=== PATIENT | female | born 1960 | race Hispanic/Latino ===

== ENCOUNTER 2017-04-24 09:58 | Inpatient (IN) | payer OTHER ==
[2017-04-24] MEDS ORDERED: Sodium Chloride 0.9% 1,000 ML IV ONE (10:27)
[2017-04-24] MEDS ORDERED: Insulin Regular 1 UNITS/0.01 ML ML IVP STA (10:45)
[2017-04-24] MEDS ORDERED: Sodium Chloride 0.9% 1,000 ML IV STA ×5 (10:45→20:09)
--- NOTE | 2017-04-24 10:48 | ED PDOC ---
Arrival/HPI - General Chief Complaint: Flu-like Symptoms Time Seen by Provider: 04/24/17 10:07 - History of Present Illness Narrative History of Present Illness (Text): 04/24/17 10:27 Kodi Villavicencio is a 56 year old female who presents to the emergency department complaining of fever and diffuse abdominal pain for 4-5 days. Patient states that she experiences associated chills, vomiting bile daily, intolerance of food and liquids, and headaches. Mild cough. Patient went to her PMD, Dr. Marin , and found she had 104.5 degree fever, sending her to the emergency department. Patient denies any other complaint at this time. PMD: Dr. aMrin Time/Duration: < week Symptom Onset: Gradual Symptom Course: Unchanged Severity Level: Mild Activities at Onset: Rest Context: Home Past Medical History - Provider Review Nursing Documentation Reviewed: Yes - Infectious Disease Hx of Infectious Diseases: None - Reproductive Menopause: Yes - Cardiac Hx Cardiac Disorders: Yes - Pulmonary Hx Respiratory Disorders: No - Neurological Hx Neurological Disorder: No - HEENT Hx HEENT Disorder: No - Renal Hx Renal Disorder: No - Endocrine/Metabolic Hx Endocrine Disorders: Yes Hx Diabetes Mellitus Type 2: Yes - Hematological/Oncological Hx Blood Disorders: No - Integumentary Hx Dermatological Disorder: No - Musculoskeletal/Rheumatological Hx Musculoskeletal Disorders: No - Gastrointestinal Hx Gastrointestinal Disorders: No - Genitourinary/Gynecological Hx Genitourinary Disorders: No - Psychiatric Hx Psychophysiologic Disorder: Yes Hx Anxiety: Yes Hx Depression: Yes Hx Substance Use: No - Surgical History Hx Section: Yes - Anesthesia Hx Anesthesia: Yes Hx Anesthesia Reactions: No Hx Malignant Hyperthermia: No - Suicidal Assessment Feels Threatened In Home Enviroment: No Family/Social History - Physician Review Nursing Documentation Reviewed: Yes Family/Social History: No Known Family HX Smoking Status: Former Smoker Hx Alcohol Use: Yes Frequency of alcohol use: Socially Hx Substance Use: No Hx Substance Use Treatment: No Allergies/Home Meds Allergies/Adverse Reactions: Allergies No Known Allergies Allergy (Verified 06/06/16 18:10) Home Medications: Home Meds Medication Instructions Recorded Confirmed PARoxetine [Paxil] 10 mg PO DAILY 06/22/15 04/24/17 Zolpidem Tartrate [Ambien] 10 mg PO HS 06/22/15 04/24/17 Alprazolam [Xanax] 0.5 mg PO PRN PRN 06/06/16 04/24/17 Review of Systems - Physician Review All systems were reviewed & negative as marked: Yes - Review of Systems Constitutional: Fevers, Night Sweats Eyes: absent: Vision Changes ENT: absent: Hearing Changes Respiratory: absent: SOB Cardiovascular: absent: Chest Pain Gastrointestinal: Abdominal Pain, Vomiting, Food Intolerance Genitourinary Female: absent: Urine Output Changes Musculoskeletal: absent: Arthralgias Skin: absent: Rash Neurological: Headache Endocrine: absent: Diaphoresis Hemo/Lymphatic: absent: Adenopathy Psychiatric: absent: Depression Physical Exam Vital Signs Reviewed: Yes Vital Signs Temp Pulse Pulse Resp BP Pulse Ox 04/24/17 18:05 113/69 04/24/17 17:58 101 H 110/60 04/24/17 17:55 110 H 116/69 04/24/17 17:51 102 F H 04/24/17 17:47 70/40 L 04/24/17 16:00 98.7 F 77 20 88/52 L 95 04/24/17 15:56 102.9 F H 125 H 125 H 20 120/83 04/24/17 10:02 102.9 F H 125 H 20 120/83 94 L Temperature: Febrile Blood Pressure: Normal Pulse: Tachycardic Respiratory Rate: Normal Appearance: Positive for: Well-Appearing, Non-Toxic, Comfortable Pain Distress: Mild Mental Status: Positive for: Alert and Oriented X 3 - Systems Exam Head: Present: Atraumatic, Normocephalic Pupils: Present: PERRL Extroacular Muscles: Present: EOMI Conjunctiva: Present: Normal Mouth: Present: Moist Mucous Membranes Neck: Present: Normal Range of Motion Respiratory/Chest: Present: Clear to Auscultation, Good Air Exchange. No: Respiratory Distress, Accessory Muscle Use Cardiovascular: Present: Regular Rate and Rhythm, Normal S1, S2. No: Murmurs Abdomen: Present: Tenderness (to leftside of abdomen). No: Guarding Back: Present: Normal Inspection Upper Extremity: Present: Normal Inspection. No: Cyanosis, Edema Lower Extremity: Present: Normal Inspection. No: Edema Neurological: Present: GCS=15, CN II-XII Intact, Speech Normal Skin: Present: Warm, Dry, Normal Color. No: Rashes Psychiatric: Present: Alert, Oriented x 3, Normal Insight, Normal Concentration Medical Decision Making ED Course and Treatment: 04/24/17 10:27 Impression: 56 year old female complaining of fever and abdominal pain for 4-5 days. Slight cough. Differential Diagnosis included but are not limited to: Fever r/o Pancreatitis , Diverticulitis vs PNA Plan: -- EKG -- Chest X-ray -- Abdominal and Pelvis CT with contrast -- VBG and blood culture -- Urinalysis and urine culture -- Tylenol and IV fluids -- Reassess and disposition Prior Visits: Notes and results from previous visits were reviewed. Patient last seen in the ED on 06/06/16 for anterior aspect of the lower leg for one week. Patient was discharged home. Progress Notes: EKG: Ordered, reviewed, and independently interpreted the EKG. Rate : 114 BPM Rhythm : Sinus Tachycardia Interpretation : Inferior lateral T-wave inversions 04/24/17 13:41. CT reviewed and noted to have infiltrate. Will treat with antibiotics. Patient was hypotensive in ED and improved with IVF. Discussed case with Dr. Zeng and will admit patient for Pneumonia to Medicine. - Lab Interpretations Lab Results: 04/24/17 11:00 04/24/17 11:00 Lab Results 04/24/17 13:00: Urine Color Yellow, Urine Appearance Clear, Urine pH 6.5, Ur Specific [place] <= 1.005, Urine Protein Trace H, Urine Glucose (UA) Negative, Urine Ketones 40 H, Urine Blood Negative, Urine Nitrate Negative, Urine Bilirubin Negative, Urine Urobilinogen 0.2, Ur Leukocyte Esterase Trace H, Urine RBC 0 - 2, Urine WBC 2 - 5, Ur Epithelial Cells 4 - 5, Urine Bacteria Trace 04/24/17 11:00: Sodium 131 L, Chloride 93 L, Potassium 3.8, Carbon Dioxide 24, Anion Gap 18, BUN 12, Creatinine 0.7, Est GFR ( Amer) > 60, Est GFR (Non- Af Amer) > 60, Random Glucose 191 H, Calcium 8.8, Phosphorus 2.8, Magnesium 1.9 , Total Bilirubin 0.9, AST 41 H, ALT 37, Alkaline Phosphatase 86, Lactate Dehydrogenase 515, Total Creatine Kinase 98, Troponin I < 0.01, Total Protein 7.5, Albumin 4.1, Globulin 3.4, Albumin/Globulin Ratio 1.2 04/24/17 11:00: pO2 42, VBG pH 7.37, VBG pCO2 39.0 L, VBG HCO3 22.5, VBG Total CO2 23.7, VBG O2 Sat (Calc) 83.1 H, VBG Base Excess -2.5 L, VBG Potassium 4.2, Sodium 142.0, Chloride 87.0 L, Glucose 201 H, Lactate 1.4, FiO2 21.0, Venous Blood Potassium 4.2 04/24/17 11:00: PT 11.6, INR 1.07, APTT 29.2 04/24/17 11:00: WBC 14.8 H D, RBC 3.56, Hgb 11.1 L, Hct 31.9 L, MCV 89.6, MCH 31.2, MCHC 34.8, RDW 13.1, Plt Count 275, MPV 9.9, Gran % 84.0 H, Lymph % (Auto ) 6.7 L, [place] % (Auto) 9.2 H, Eos % (Auto) 0.0 L, Baso % (Auto) 0.1, Gran # 12.40 H, Lymph # 1.0 L, [place] # 1.4 H, Eos # 0.0, Baso # 0.02 - RAD Interpretation Radiology Orders: 04/24/17 10:30 CHEST PORTABLE [RAD] Stat 04/24/17 10:31 ABD & PELVIS IV CONTRAST ONLY [CT] Stat - Medication Orders Current Medication Orders: Acetaminophen (Tylenol 325mg Tab) 650 mg PO Q6H PRN PRN Reason: Fever >100.5 F Last Admin: 04/24/17 17:51 Dose: 650 mg Azithromycin (Zithromax 500mg In Ns) 500 mg in 250 mls @ 167 mls/hr IVPB DAILY LUÍS PRN Reason: Protocol Sodium Chloride (Sodium Chloride 0.9%) 1,000 mls @ 999 mls/hr IV .Q1H1M STA Stop: 04/24/17 19:02 Sodium Chloride (Sodium Chloride 0.9%) 1,000 mls @ 100 mls/hr IV .Q10H LUÍS Stop: 04/25/17 14:14 Piperacillin Sod/Tazobactam Sod (Zosyn 3.375 In Ns 100ml) 100 mls @ 200 mls/hr IVPB Q6 LUÍS PRN Reason: Protocol Stop: 05/02/17 18:46 Sodium Chloride (Sodium Chloride 0.9%) 1,000 mls @ 999 mls/hr IV .Q1H1M STA Stop: 04/24/17 19:46 Ondansetron HCl (Zofran Inj) 4 mg IVP Q4H PRN PRN Reason: Nausea/Vomiting Last Admin: 04/24/17 18:36 Dose: 4 mg Paroxetine HCl (Paxil) 10 mg PO DAILY LUÍS Zolpidem Tartrate (Ambien) 5 mg PO HS LUÍS PRN Reason: Protocol Discontinued Medications Acetaminophen (Tylenol 325mg Tab) 975 mg PO ONCE PRN PRN Reason: Fever >100.4 F Last Admin: 04/24/17 10:57 Dose: 975 mg Re-Assess: MAR Pain/Vitals Edit Result 04/24/17 11:57 ME (Rec: 04/24/17 15:23 [id number] Pain Reassessment Is This A Pain ReAssessment? Yes Sleep Is patient sleeping during reassessment? No Presence of Pain Presence of Pain No Location Pain Location Body Site Abdomen Sodium Chloride (Sodium Chloride 0.9%) 1,000 mls @ 999 mls/hr IV .Q1H1M STA Stop: 04/24/17 11:45 Last Admin: 04/24/17 10:58 Dose: 999 mls/hr Sodium Chloride (Sodium Chloride 0.9%) 1,000 mls @ 999 mls/hr IV .Q1H1M STA Stop: 04/24/17 13:32 Last Admin: 04/24/17 12:41 Dose: 999 mls/hr Ceftriaxone Sodium (Rocephin 1 Gram Ivpb) 1 gm in 100 mls @ 200 mls/hr IVPB STAT STA PRN Reason: Protocol Stop: 04/24/17 18:31 Iohexol (Omnipaque 350 100 Ml) Confirm Administered Dose 350 mg .ROUTE .STK-MED ONE Stop: 04/24/17 11:17 Ketorolac Tromethamine (Toradol) 30 mg IVP STAT STA Stop: 04/24/17 13:06 Last Admin: 04/24/17 13:23 Dose: 30 mg Pneumococcal Polyvalent Vaccine (Pneumovax 23 Vaccine) 0.5 ml IM .ONCE ONE Stop: 04/24/17 16:08 - Scribe Statement The provider has reviewed the documentation as recorded by the Scribe Divina Axel Provider Scribe Attestation: All medical record entries made by the Marlin were at my direction and personally dictated by me. I have reviewed the chart and agree that the record accurately reflects my personal performance of the history, physical exam, medical decision making, and the department course for this patient. I have also personally directed, reviewed, and agree with the discharge instructions and disposition. Disposition/Present on Arrival - Present on Arrival Any Indicators Present on Arrival: No History of DVT/PE: No History of Uncontrolled Diabetes: No Urinary Catheter: No History of Decub. Ulcer: No History Surgical Site Infection Following: None - Disposition Have Diagnosis and Disposition been Completed?: Yes Diagnosis: Pneumonia Disposition Time: 13:41 Patient Plan: Admission Patient Problems: Current Active Problems Problem Status Onset Pneumonia Acute Condition: FAIR
--- NOTE | 2017-04-24 10:57 | RAD ---
HISTORY: Sepsis Patient COMPARISON: No prior. FINDINGS: LUNGS: Ill-defined opacity at medial right lung base, possibly lower lobe infiltrate. This silhouettes the right hemidiaphragm. Followup advised. No other abnormal opacity seen elsewhere. PLEURA: No significant pleural effusion identified, no pneumothorax apparent. CARDIOVASCULAR: Normal. OSSEOUS STRUCTURES: No significant abnormalities. VISUALIZED UPPER ABDOMEN: Normal. OTHER FINDINGS: None. IMPRESSION: Medial right basilar opacity, possible pneumonia.
[2017-04-24] MEDS ORDERED: Iohexol 350 MG/100 ML VIAL ONE ×2 (11:16→22:28)
[2017-04-24 11:21] LABS: BASO # 0.02 K/mm3 (0.0-2.0); BASO % 0.1 % (0.0-3.0); HEMOGLOBIN 11.1 gm/dL (12.0-16.0); LYMPH % 6.7 % (22.0-35.0); MEAN CELL VOLUME 89.6 fL (80.0-105.0); MEAN CORPUSCULAR HEMOGLOBIN 31.2 pg (25.0-35.0); MEAN CORPUSCULAR HGB CONC 34.8 g/dl (31.0-37.0); MEAN PLATELET VOLUME 9.9 fl (7.0-11.0); MONO # 1.4 (0.1-0.6); MONO % 9.2 % (1.0-6.0); PLATELET COUNT 275 10^3/uL (120.0-450.0); RBC 3.56 10^6/uL (3.5-6.1); RED CELL DISTRIBUTION WIDTH 13.1 % (11.5-14.5); WHITE BLOOD COUNT 14.8 10^3/ul (4.5-11.0)
[2017-04-24 11:24] LABS: VENOUS BLOOD GAS BASE EXCESS -2.5 mmol/L (0.0-2.0); VENOUS BLOOD GAS PO2 42 mm/Hg (30-55); VENOUS BLOOD PH 7.37 (7.32-7.43)
[2017-04-24 11:29] LABS: ALB/GLOB RATIO 1.2 (1.1-1.8); ALBUMIN 4.1 g/dL (3.0-4.8); ALT/SGPT 37 U/L (7-56); AST/SGOT 41 U/L (15-39); BLOOD UREA NITROGEN 12 mg/dL (7-21); CALCIUM 8.8 mg/dL (8.4-10.5); GFR AFRICAN-AMERICAN > 60; GFR NON-AFRICAN AMERICAN > 60; INR 1.07 (0.93-1.08); MAGNESIUM 1.9 mg/dL (1.7-2.2); PARTIAL THROMBOPLASTIN TIME 29.2 Seconds (23.7-30.8); PROTHROMBIN TIME 11.6 Seconds (9.9-11.8)
[2017-04-24 11:42] LABS: TROPONIN I < 0.01 ng/mL
--- NOTE | 2017-04-24 13:03 | CT ---
PROCEDURE: CT Abdomen and Pelvis with contrast HISTORY: abd pain r/o diverticulitis r/o colitis COMPARISON: None. TECHNIQUE: Contrast dose: 100 mL Omnipaque 350 Radiation dose: Total exam DLP = 915.59 mGy-cm. This CT exam was performed using one or more of the following dose reduction techniques: Automated exposure control, adjustment of the mA and/or kV according to patient size, and/or use of iterative reconstruction technique. FINDINGS: LOWER THORAX: Right lower lobe infiltrate with areas of mei consolidation. LIVER: Unremarkable. No gross lesion or ductal dilatation. GALLBLADDER AND BILE DUCTS: Unremarkable. PANCREAS: No mass. Fatty atrophy of the pancreatic head. No ductal dilatation. No peripancreatic fluid. SPLEEN: Unremarkable. ADRENALS: Unremarkable. No mass. KIDNEYS AND URETERS: Unremarkable. No hydronephrosis. No solid mass. VASCULATURE: Unremarkable. No aortic aneurysm. BOWEL: Sigmoid diverticulosis. Mural thickening of the sigmoid colon likely secondary to chronic muscular hypertrophy. No evidence diverticulitis. APPENDIX: Normal appendix. PERITONEUM: Unremarkable. No free fluid. No free air. LYMPH NODES: Unremarkable. No enlarged lymph nodes. BLADDER: Unremarkable. REPRODUCTIVE: Normal uterus BONES: No acute fracture. OTHER FINDINGS: None. IMPRESSION: Right lower lobe infiltrate, possibly pneumonia. No evidence of diverticulitis. Sigmoid diverticulosis with probable chronic muscular hypertrophy. Otherwise unremarkable examination. No
[2017-04-24 13:19] LABS: PH,URINE 6.5 (4.7-8.0); URINE BILIRUBIN NEGATIVE (NEGATIVE); URINE BLOOD NEGATIVE (NEGATIVE); URINE GLUCOSE (UA) NEGATIVE (NEGATIVE); URINE LEUKOCYTE ESTERASE TRACE Leu/uL (NEGATIVE); URINE NITRATE NEGATIVE (NEGATIVE); URINE PROTEIN TRACE mg/dL (<30 mg/dL); URINE UROBILINOGEN 0.2 E.U./dL (<1 E.U./dL)
[2017-04-24 13:20] LABS: URINE APPEARANCE CLEAR (CLEAR); URINE COLOR YELLOW (YELLOW)
[2017-04-24 13:29] LABS: URINE RBC 0 - 2 /hpf (0-2)
[2017-04-24 13:30] LABS: URINE BACTERIA TRACE (NEG)
[2017-04-24 16:07] VITALS: BMI 35.5
[2017-04-24] MEDS ORDERED: Pneumococcal 23-Valent Vaccine IM ONE (16:07)
[2017-04-24] MEDS ORDERED: cefTRIAXone 1 gm 1 GM/100 ML BAG IVPB STA (18:02)
--- NOTE | 2017-04-24 18:05 | CP.PCM.PN ---
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 nurses report patient was hypotensive at 70/40. Patient felt chills, denies chest pain, SOB, abdominal pain, N/V. Patient was immediately placed in trendelenberg new blood pressure 116/69. Vitals: 110/76 HR 101 T 102F PE: General: AAOx3, chills, diaphoretic, anxious Eyes: EOMI, no scleral icterus Throat: trachea midline Heart: Tachycardia, regular rhythm, S1 and S2 auscultated Lungs: Consolidation in Right lower lobe, no cyanosis, respiratory distress, hyperventilation. Abdomen: round, soft, nontender Extremities: no pitting edema, full ROM, muscle strength +5/[address] Abdomen: poss. Right lower lobe pneumonia IVF NS 1L bolus Started Zithro 500mg, rocephin 1 gm IVPB Recheck vitals in one hour Tylenol 650mg STAT Case discussed with Dr. Evans Objective - Vital Signs/Intake and Output Vital Signs (last 24 hours): Temp Pulse Resp BP Pulse Ox 98.7 F 101 H 20 110/60 95 04/24/17 16:00 04/24/17 17:58 04/24/17 16:00 04/24/17 17:58 04/24/17 16:00 - Medications Medications: Current Medications Acetaminophen (Tylenol 325mg Tab) 650 mg PO Q6H PRN PRN Reason: Fever >100.5 F Azithromycin (Zithromax 500mg In Ns) 500 mg in 250 mls @ 167 mls/hr IVPB DAILY LUÍS PRN Reason: Protocol Ceftriaxone Sodium (Rocephin 1 Gram Ivpb) 1 gm in 100 mls @ 200 mls/hr IVPB STAT STA PRN Reason: Protocol Stop: 04/24/17 18:31 Sodium Chloride (Sodium Chloride 0.9%) 1,000 mls @ 999 mls/hr IV .Q1H1M STA Stop: 04/24/17 19:02 Ondansetron HCl (Zofran Inj) 4 mg IVP Q4H PRN PRN Reason: Nausea/Vomiting Paroxetine HCl (Paxil) 10 mg PO DAILY LUÍS Zolpidem Tartrate (Ambien) 5 mg PO HS LUÍS PRN Reason: Protocol - Labs Labs: PT 11.6 Seconds (9.9-11.8) 04/24/17 11:00 INR 1.07 (0.93-1.08) 04/24/17 11:00 APTT 29.2 Seconds (23.7-30.8) 04/24/17 11:00 Assessment and Plan - Assessment and Plan (Free Text) Assessment: 56 F presents with PNA with hypotensive episode, lactate 1.4 Plan: Please see Subjective for Plan <Joe Evans P - Last Filed: 04/24/17 18:29> Objective - Vital Signs/Intake and Output Vital Signs (last 24 hours): Temp Pulse Resp BP Pulse Ox 102 F H 101 H 20 113/69 95 04/24/17 17:51 04/24/17 17:58 04/24/17 16:00 04/24/17 18:05 04/24/17 16:00 - Medications Medications: Current Medications Acetaminophen (Tylenol 325mg Tab) 650 mg PO Q6H PRN PRN Reason: Fever >100.5 F Last Admin: 04/24/17 17:51 Dose: 650 mg Azithromycin (Zithromax 500mg In Ns) 500 mg in 250 mls @ 167 mls/hr IVPB DAILY LUÍS PRN Reason: Protocol Ceftriaxone Sodium (Rocephin 1 Gram Ivpb) 1 gm in 100 mls @ 200 mls/hr IVPB STAT STA PRN Reason: Protocol Stop: 04/24/17 18:31 Sodium Chloride (Sodium Chloride 0.9%) 1,000 mls @ 999 mls/hr IV .Q1H1M STA Stop: 04/24/17 19:02 Sodium Chloride (Sodium Chloride 0.9%) 1,000 mls @ 100 mls/hr IV .Q10H LUÍS Stop: 04/25/17 14:14 Ondansetron HCl (Zofran Inj) 4 mg IVP Q4H PRN PRN Reason: Nausea/Vomiting Paroxetine HCl (Paxil) 10 mg PO DAILY LUÍS Zolpidem Tartrate (Ambien) 5 mg PO HS LUÍS PRN Reason: Protocol - Labs Labs: PT 11.6 Seconds (9.9-11.8) 04/24/17 11:00 INR 1.07 (0.93-1.08) 04/24/17 11:00 APTT 29.2 Seconds (23.7-30.8) 04/24/17 11:00 Attending/Attestation - Attestation I have personally seen and examined this patient.: Yes I have fully participated in the care of the patient.: Yes I have reviewed all pertinent clinical information, including history, physical exam and plan: Yes Notes (Text): 04/24/17 18:25 Fever, chills, initial low bp for which HE[employer] OPERATING ENGINEER was called noticed temp 102, pt having chills bp elevated from muscle contraction from chills but manual still in normal range of 116/70. CT abd/pelvis shows RLL pna, pt is alert and oriented. Abx started Rocephin and zithromax. Pt and vs will be rechecked in 1 hr after chills resolve, if hypotensive, will repeat labs including lactic acid as at this time it will be falsely elevated form severe chills. PMD notified by nurse on phone.
[2017-04-24] MEDS ORDERED: Sodium Chloride 0.9% 1,000 ML IV SCH (18:15)
[2017-04-24] MEDS ORDERED: Azithromycin 500MG/NS 250ml 500 MG/250 ML BAG IVPB STA (19:44)
--- NOTE | 2017-04-24 20:16 | PCM.SEPTIC ---
<BLUE MARCIAL - Last Filed: 04/24/17 20:13> Sepsis Progress Note - Reassessment Type Date of Evaluation: 04/24/17 Time of Evaluation: 20:13 Reassessment Type: Non-invasive reassessment - Non Invasive Reassessment Were the most recent vital sign reviewed: Yes Vital Sign (Latest): Temp Pulse Resp BP Pulse Ox 101.5 F H 101 H 20 90/60 L 95 04/24/17 19:52 04/24/17 17:58 04/24/17 16:00 04/24/17 19:51 04/24/17 16:00 Cardiovascular: Yes: Chest Non Tender, Tachycardia. No: Edema, JVD, Murmur, Bradycardia, Irregularly Irregular Respiratory: Yes: Normal Breath Sounds. No: Decreased Breath Sounds, Crackles, Rales, Rhonchi, Stridor, Wheezing, Respiratory Distress Capillary Refill: Normal (Less than 2 sec) Pulses: Normal Radial, Normal Dorsalis Pedis, Normal Posterior Tibialis Skin: Normal Color, Warm <Sage Gross - Last Filed: 04/24/17 22:24> Sepsis Progress Note - Non Invasive Reassessment Vital Sign (Latest): Temp Pulse Resp BP Pulse Ox 101.5 F H 101 H 20 90/60 L 95 04/24/17 19:52 04/24/17 17:58 04/24/17 16:00 04/24/17 19:51 04/24/17 16:00 Attending/Attestation - Attestation I have personally seen and examined this patient.: Yes I have fully participated in the care of the patient.: Yes I have reviewed all pertinent clinical information, including history, physical exam and plan: Yes Notes (Text): 04/24/17 22:23 Agree with biomedical engineer.
[2017-04-24 20:18] LABS: HEMOGLOBIN 9.4 gm/dL (12.0-16.0); MEAN CELL VOLUME 89.2 fL (80.0-105.0); MEAN CORPUSCULAR HEMOGLOBIN 30.7 pg (25.0-35.0); MEAN CORPUSCULAR HGB CONC 34.4 g/dl (31.0-37.0); MEAN PLATELET VOLUME 9.6 fl (7.0-11.0); RBC 3.06 10^6/uL (3.5-6.1); RED CELL DISTRIBUTION WIDTH 13.5 % (11.5-14.5); WHITE BLOOD COUNT 10.2 10^3/ul (4.5-11.0)
[2017-04-24 20:19] LABS: VENOUS BLOOD GAS BASE EXCESS -2.4 mmol/L (0.0-2.0); VENOUS BLOOD GAS PO2 55 mm/Hg (30-55); VENOUS BLOOD PH 7.38 (7.32-7.43)
[2017-04-24 20:29] LABS: ALB/GLOB RATIO 1.1 (1.1-1.8); ALBUMIN 3.1 g/dL (3.0-4.8); ALT/SGPT 38 U/L (7-56); AST/SGOT 34 U/L (15-39); BLOOD UREA NITROGEN 14 mg/dL (7-21); CALCIUM 7.2 mg/dL (8.4-10.5); GFR AFRICAN-AMERICAN > 60; GFR NON-AFRICAN AMERICAN > 60
[2017-04-24 20:41] LABS: B-TYPE NATRIURETIC PEPTIDE 422 pg/mL (0-450)
[2017-04-24 20:51] LABS: TROPONIN I < 0.01 ng/mL
--- NOTE | 2017-04-24 22:30 | CP.PCM.CON ---
Addendum entered and electronically signed by Lawrence Pinedo DO 04/24/17 23:24 : Pt septic not responsive to fluids following 3L. I spoke to Dr Zeng regarding possible PE - will order CT angio PE protocol to r/o any PE. Will closely monitor. Original Note: <Lawrence Pinedo - Last Filed: 04/24/17 22:19> History of Present Illness - History of Present Illness History of Present Illness: ICU consult note: 56 F with pmh of DM presented to the ED with abd pain with nausea and vomiting, fever, and chills. Pt states that her symptoms first started 4-5 days ago and have gotten progressively worse. She denies taking anything at home for the pain. Pt states that she has no been able to keep anything down and vomits bile looking content. Patient than went to her PMD and found she had >104 degree fever, than send her to the emergency department. Pt did report taking Ambien nightly for the past 4 years and abruptly stopping it aprox 4-5 days ago. Pt denies any dizziness, palpitations, sob, cp, diarrhea. In the ED [address] abd showed a possible RLL infiltrate no acute intra abdominal abnormality. Pt was sent to the floor. MOTOR TRANSPORT INSPECTOR was called while pt was on the floor. Pt was hypotensive as low as 70/40. 3 Bolus of fluid was administered and BP was 94/60. Lactate of 1.4 and three hour lactate of 1. Trops x 2 negative. BNP 422. PMH: DM PSH: denies ALL: NKA FH: mother with DM SH: denies any alcohol, smking or drug usage. Works as a teachers aid for special ed Review of Systems - Review of Systems All systems: reviewed and no additional remarkable complaints except (HPI) Past Patient History - Infectious Disease Hx of Infectious Diseases: None - Past Social History Smoking Status: Former Smoker - CARDIAC Hx Cardiac Disorders: Yes - PULMONARY Hx Respiratory Disorders: No - NEUROLOGICAL Hx Neurological Disorder: No - HEENT Hx HEENT Problems: No - RENAL Hx Chronic Kidney Disease: No - ENDOCRINE/METABOLIC Hx Endocrine Disorders: Yes Hx Diabetes Mellitus Type 2: Yes - HEMATOLOGICAL/ONCOLOGICAL Hx Blood Disorders: No - INTEGUMENTARY Hx Dermatological Problems: No - MUSCULOSKELETAL/RHEUMATOLOGICAL Hx Musculoskeletal Disorders: No - GASTROINTESTINAL Hx Gastrointestinal Disorders: No - GENITOURINARY/GYNECOLOGICAL Hx Genitourinary Disorders: No - PSYCHIATRIC Hx Psychophysiologic Disorder: Yes Hx Anxiety: Yes Hx Depression: Yes Hx Substance Use: No - SURGICAL HISTORY Hx Section: Yes - ANESTHESIA Hx Anesthesia: Yes Hx Anesthesia Reactions: No Hx Malignant Hyperthermia: No Meds Allergies/Adverse Reactions: Allergies Allergy/AdvReac Type Severity Reaction Status Date / Time No Known Allergies Allergy Verified 06/06/16 18:10 - Medications Medications: Current Medications Acetaminophen (Tylenol 325mg Tab) 650 mg PO Q6H PRN PRN Reason: Fever >100.5 F Last Admin: 04/24/17 17:51 Dose: 650 mg Enoxaparin Sodium (Lovenox) 40 mg SC DAILY LUÍS PRN Reason: Protocol Azithromycin (Zithromax 500mg In Ns) 500 mg in 250 mls @ 167 mls/hr IVPB DAILY LUÍS PRN Reason: Protocol Sodium Chloride (Sodium Chloride 0.9%) 1,000 mls @ 100 mls/hr IV .Q10H [facility] Stop: 04/25/17 14:14 Piperacillin Sod/Tazobactam Sod (Zosyn 3.375 In Ns 100ml) 100 mls @ 200 mls/hr IVPB Q6 LUÍS PRN Reason: Protocol Stop: 05/02/17 18:46 Ondansetron HCl (Zofran Inj) 4 mg IVP Q4H PRN PRN Reason: Nausea/Vomiting Last Admin: 04/24/17 18:36 Dose: 4 mg Paroxetine HCl (Paxil) 10 mg PO DAILY [facility] Last Admin: 04/24/17 19:00 Dose: Not Given Zolpidem Tartrate (Ambien) 5 mg PO HS LUÍS PRN Reason: Protocol Physical Exam - Constitutional Appears: No Acute Distress - Head Exam Head Exam: ATRAUMATIC, NORMAL INSPECTION, NORMOCEPHALIC - Eye Exam Eye Exam: EOMI, Normal appearance, PERRL Pupil Exam: NORMAL ACCOMODATION, PERRL - ENT Exam ENT Exam: Mucous Membranes Moist, Normal Exam - Neck Exam Neck exam: Positive for: Normal Inspection - Respiratory Exam Respiratory Exam: Clear to Auscultation Bilateral, NORMAL BREATHING PATTERN. absent: Rales, Wheezes - Cardiovascular Exam Cardiovascular Exam: REGULAR RHYTHM, RRR, +S1, +S2 - GI/Abdominal Exam GI & Abdominal Exam: Normal Bowel Sounds, Soft. absent: Tenderness - Extremities Exam Extremities exam: Positive for: normal inspection - Back Exam Back exam: NORMAL INSPECTION - Neurological Exam Neurological exam: Alert, CN II-XII Intact, Normal Gait, Oriented x3, Reflexes Normal - Psychiatric Exam Psychiatric exam: Normal Affect, Normal Mood - Skin Skin Exam: Dry, Intact, Normal Color, Warm Results - Vital Signs Recent Vital Signs: Last Vital Signs Temp 101.5 F H 04/24/17 19:52 Pulse 101 H 04/24/17 17:58 Resp 20 04/24/17 16:00 BP 90/60 L 04/24/17 19:51 Pulse Ox 95 04/24/17 16:00 - Labs Result Diagrams: 04/24/17 20:13 04/24/17 20:13 Labs: Laboratory Results - last 24 hr 04/24/17 04/24/17 04/24/17 20:13 20:13 20:13 WBC 10.2 D RBC 3.06 L Hgb 9.4 L Hct 27.3 L MCV 89.2 MCH 30.7 MCHC 34.4 RDW 13.5 Plt Count 223 MPV 9.6 pO2 VBG pH VBG pCO2 VBG HCO3 VBG O2 Sat (Calc) VBG Base Excess Sodium 135 Potassium 3.7 Chloride 105 Carbon Dioxide 21 Anion Gap 13 BUN 14 Creatinine 0.7 Est GFR ( Amer) > 60 Est GFR (Non-Af Amer) > 60 Random Glucose 146 H Lactic Acid 1.0 Calcium 7.2 L Total Bilirubin 0.7 AST 34 ALT 38 Alkaline Phosphatase 68 Troponin I < 0.01 NT-Pro-B Natriuret Pep 422 Total Protein 5.9 Albumin 3.1 Globulin 2.8 Albumin/Globulin Ratio 1.1 04/24/17 20:13 WBC RBC Hgb Hct MCV MCH MCHC RDW Plt Count MPV pO2 55 VBG pH 7.38 VBG pCO2 38.0 L VBG HCO3 22.5 VBG O2 Sat (Calc) 93.6 H VBG Base Excess -2.4 L Sodium Potassium Chloride Carbon Dioxide Anion Gap BUN Creatinine Est GFR ( Amer) Est GFR (Non-Af Amer) Random Glucose Lactic Acid Calcium Total Bilirubin AST ALT Alkaline Phosphatase Troponin I NT-Pro-B Natriuret Pep Total Protein Albumin Globulin Albumin/Globulin Ratio Assessment & Plan - Assessment and Plan (Free Text) Assessment: 56 F with pmh of DM and anxiety presented to the ED with abd pain, nausea and vomiting, fever, and chills. MOTOR TRANSPORT INSPECTOR called - Pt found to be septic - hypotensive and non responsive to 3 L bolus will transfer to the ICU for close monitoring. Neuro: AAO x 3; stable Pulm: - F/U CT angio PE protocol - O2 nasal cannula PRN - Maintaion SAO2 > 94% CV: - EKbpm sinus tach, L ant fasicular block ST & T wave abnormality, consider lateral ischemia - Trops x 2 negative - F/u morning trops - Maintain MAP > 65 - S/p 3 L bolus NS - NS @ 100 GI: - NPO - Stable Endo: - Maintain euglycemic with blood sugars 140-180 Renal: - Strict I and O - Monitor electrolytes ID: - Cont Rocephin and Azithromycin - Staretd on Zosyn - F/u Blood cx - Urinalysis negative - Tylenol PRN for fevers Ppx: - Lovenox Sc and protonix Following CT angio chest we will transfer pt to the ICU for closer monitoring. Case and plan was seen, reviewed and discussed in detail with Dr Grimaldo. <Jose C Grimaldo Q - Last Filed: 04/25/17 04:45> Meds - Medications Medications: Current Medications Acetaminophen (Tylenol 325mg Tab) 650 mg PO Q6H PRN PRN Reason: Fever >100.5 F Last Admin: 04/24/17 17:51 Dose: 650 mg Benzonatate (Tessalon Perles) 100 mg PO Q8 PRN PRN Reason: Cough Enoxaparin Sodium (Lovenox) 40 mg SC DAILY LUÍS PRN Reason: Protocol Azithromycin (Zithromax 500mg In Ns) 500 mg in 250 mls @ 167 mls/hr IVPB DAILY LUÍS PRN Reason: Protocol Sodium Chloride (Sodium Chloride 0.9%) 1,000 mls @ 100 mls/hr IV .Q10H [facility] Stop: 04/25/17 14:14 Piperacillin Sod/Tazobactam Sod (Zosyn 3.375 In Ns 100ml) 100 mls @ 200 mls/hr IVPB Q6 LUÍS PRN Reason: Protocol Stop: 05/02/17 18:46 Ondansetron HCl (Zofran Inj) 4 mg IVP Q4H PRN PRN Reason: Nausea/Vomiting Last Admin: 04/24/17 18:36 Dose: 4 mg Paroxetine HCl (Paxil) 10 mg PO DAILY LUÍS Last Admin: 04/24/17 19:00 Dose: Not Given Zolpidem Tartrate (Ambien) 5 mg PO HS LUÍS PRN Reason: Protocol Results - Vital Signs Recent Vital Signs: Last Vital Signs Temp 101.5 F H 04/24/17 19:52 Pulse 76 04/25/17 00:58 Resp 29 H 04/25/17 00:50 BP 101/56 L 04/25/17 01:00 Pulse Ox 95 04/25/17 00:50 - Labs Result Diagrams: 04/25/17 03:10 04/25/17 03:10 Labs: Laboratory Results - last 24 hr 04/24/17 04/24/17 04/25/17 22:55 22:56 02:58 WBC RBC Hgb Hct MCV MCH MCHC RDW Plt Count MPV Sodium Potassium Chloride Carbon Dioxide Anion Gap BUN Creatinine Est GFR ( Amer) Est GFR (Non-Af Amer) POC Glucose (mg/dL) 165 H Random Glucose Lactic Acid 0.9 Calcium Total Bilirubin AST ALT Alkaline Phosphatase Troponin I Total Protein Albumin Globulin Albumin/Globulin Ratio Influenza Typ A,B (EIA) Negative for flu a/b 04/25/17 04/25/17 03:10 03:10 WBC 10.1 RBC 3.37 L Hgb 10.4 L Hct 30.4 L MCV 90.2 MCH 30.9 MCHC 34.2 RDW 13.9 Plt Count 238 MPV 9.7 Sodium 140 Potassium 4.1 Chloride 108 H Carbon Dioxide 22 Anion Gap 14 BUN 12 Creatinine 0.6 Est GFR ( Amer) > 60 Est GFR (Non-Af Amer) > 60 POC Glucose (mg/dL) Random Glucose 145 H Lactic Acid Calcium 7.8 L Total Bilirubin 0.9 AST 79 H ALT 59 H Alkaline Phosphatase 99 Troponin I < 0.01 Total Protein 6.5 Albumin 3.4 Globulin 3.1 Albumin/Globulin Ratio 1.1 Influenza Typ A,B (EIA) Attending/Attestation - Attestation I have personally seen and examined this patient.: Yes I have fully participated in the care of the patient.: Yes I have reviewed all pertinent clinical information: Yes Notes (Text): 04/25/17 04:37 I agree with the above mentioned note by the Resident with the addition/ exception of the followin56 y/o female with a PMHx DM admitted earlier today with generalized complaints of fever, chills and muscle aches for the past 3-4 days. Patient was given IVF boluses in the ED and admitted to the medical floor. Earlier this evening a code sepsis was called on her for tachycardia, fever and bouts of hypotension which appeared to respond to IVF administration. She was given about 5 liters of IVF today with a persistently low/normal blood pressure. She remained AAOX3 throughout with a normal lactate. She was planned to go for a CT Angio to rule out PE as a cause for her symptoms however the radiology dept would not allow for this study since she received a contrasted study of her Abd/pelvis within the previous 24hrs. A V/Q scan was performed which showed low probability for PE. She was transferred to the ICU for closer monitoring and more frequent vital signs. Her Abd/Pelvis CT did show a right lower lobe pneumonia; flu swab has been ordered despite it not being flu season. She also mentions abrupt discontinuation of her ambien which she took for 4 years about 5 days ago; she reports her current symptoms started 4 days ago. Case discussed with the residents as well as Dr. Gross (Freddie BROWN) labs and images available to me have been reviewed thus far total time of care: 40 minutes
--- NOTE | 2017-04-24 23:52 | CP.PCM.PN ---
Subjective - Date & Time of Evaluation Date of Evaluation: 04/24/17 Time of Evaluation: 23:52 - Subjective Subjective: Patient was seen because it was endorsed to me by . Earlier, there was a RAPID RESPONSE announced because patient had become hypotensive.Patient was getting a bolus of normal saline. After receiving 3 boluses of 1L NS, BP was still 79/46. EKG showed NSR, inverted T waves in leads V2 through V6. Patient has no complaints. Denies chest pain, sob, nausea, sweating. Medical record was reviewed. This 56 year old white woman was admitted from PMD's office for nausea, vomiting,T:104.5*F. Has PMH of DM II,obesity,CAD,diverticulosis,depression,smoker, Objective - Vital Signs/Intake and Output Vital Signs (last 24 hours): Temp Pulse Resp BP Pulse Ox 101.5 F H 101 H 20 90/60 L 95 04/24/17 19:52 04/24/17 17:58 04/24/17 16:00 04/24/17 19:51 04/24/17 16:00 - Medications Medications: Current Medications Acetaminophen (Tylenol 325mg Tab) 650 mg PO Q6H PRN PRN Reason: Fever >100.5 F Last Admin: 04/24/17 17:51 Dose: 650 mg Enoxaparin Sodium (Lovenox) 40 mg SC DAILY LUÍS PRN Reason: Protocol Azithromycin (Zithromax 500mg In Ns) 500 mg in 250 mls @ 167 mls/hr IVPB DAILY [facility]ÍS PRN Reason: Protocol Sodium Chloride (Sodium Chloride 0.9%) 1,000 mls @ 100 mls/hr IV .Q10H [facility] Stop: 04/25/17 14:14 Piperacillin Sod/Tazobactam Sod (Zosyn 3.375 In Ns 100ml) 100 mls @ 200 mls/hr IVPB Q6 LUÍS PRN Reason: Protocol Stop: 05/02/17 18:46 Ondansetron HCl (Zofran Inj) 4 mg IVP Q4H PRN PRN Reason: Nausea/Vomiting Last Admin: 04/24/17 18:36 Dose: 4 mg Paroxetine HCl (Paxil) 10 mg PO DAILY [facility]ÍS Last Admin: 04/24/17 19:00 Dose: Not Given Zolpidem Tartrate (Ambien) 5 mg PO HS LUÍS PRN Reason: Protocol - Labs Labs: PT 11.6 Seconds (9.9-11.8) 04/24/17 11:00 INR 1.07 (0.93-1.08) 04/24/17 11:00 APTT 29.2 Seconds (23.7-30.8) 04/24/17 11:00 - Constitutional Appears: Well, No Acute Distress - Head Exam Head Exam: ATRAUMATIC, NORMAL INSPECTION, NORMOCEPHALIC - Eye Exam Eye Exam: Normal appearance - ENT Exam ENT Exam: Mucous Membranes Dry - Neck Exam Neck Exam: Normal Inspection - Respiratory Exam Respiratory Exam: NORMAL BREATHING PATTERN - Cardiovascular Exam Cardiovascular Exam: REGULAR RHYTHM - GI/Abdominal Exam GI & Abdominal Exam: absent: Distended - Rectal Exam Rectal Exam: Deferred - Exam Additional comments: Deferred. - Extremities Exam Extremities Exam: Normal Inspection - Back Exam Back Exam: NORMAL INSPECTION - Neurological Exam Neurological Exam: Alert - Psychiatric Exam Psychiatric exam: Normal Affect, Normal Mood - Skin Skin Exam: Dry Assessment and Plan - Assessment and Plan (Free Text) Assessment: Hypotension. PNA. Sepsis. Anemia. Diverticulosis. Depression Obesity. DM II. Plan: NS boluses- 3 given. CBC with diff. CMP. Troponin. D-dimer. EKG------->Ischemic changes v2-V6. Spoke to for evaluation to transfer patient to ICU. CRITICAL CARE TIME SPENT :30 minutes.
--- NOTE | 2017-04-25 02:55 | PCM.SEPTIC ---
<BLUE MARCIAL - Last Filed: 04/25/17 02:54> Sepsis Progress Note - Reassessment Type Date of Evaluation: 04/25/17 Time of Evaluation: 02:45 Reassessment Type: Non-invasive reassessment - Non Invasive Reassessment Were the most recent vital sign reviewed: Yes Vital Sign (Latest): Temp Pulse Resp BP Pulse Ox 101.5 F H 76 29 H 101/56 L 95 04/24/17 19:52 04/25/17 00:58 04/25/17 00:50 04/25/17 01:00 04/25/17 00:50 Cardiovascular: Yes: Regular Rate, Rhythm. No: Chest Non Tender, Bradycardia, Tachycardia, Irregularly Irregular Respiratory: Yes: Normal Breath Sounds. No: Crackles, Rales, Rhonchi, Stridor, Wheezing, Respiratory Distress Capillary Refill: Normal (Less than 2 sec) Pulses: Normal Radial, Normal Dorsalis Pedis, Normal Posterior Tibialis Skin: Normal Color, Dry <Sage Gross - Last Filed: 04/25/17 12:21> Sepsis Progress Note - Non Invasive Reassessment Vital Sign (Latest): Temp Pulse Resp BP Pulse Ox 99.4 F 113 H 45 H 127/80 94 L 04/25/17 04:00 04/25/17 10:20 04/25/17 10:20 04/25/17 10:00 04/25/17 10:20 Attending/Attestation - Attestation I have personally seen and examined this patient.: Yes I have fully participated in the care of the patient.: Yes I have reviewed all pertinent clinical information, including history, physical exam and plan: Yes Notes (Text): 04/25/17 12:21 Agree with medical laboratory scientist.
[2017-04-25 03:30] LABS: HEMOGLOBIN 10.4 gm/dL (12.0-16.0); MEAN CELL VOLUME 90.2 fL (80.0-105.0); MEAN CORPUSCULAR HEMOGLOBIN 30.9 pg (25.0-35.0); MEAN CORPUSCULAR HGB CONC 34.2 g/dl (31.0-37.0); MEAN PLATELET VOLUME 9.7 fl (7.0-11.0); RBC 3.37 10^6/uL (3.5-6.1); RED CELL DISTRIBUTION WIDTH 13.9 % (11.5-14.5); WHITE BLOOD COUNT 10.1 10^3/ul (4.5-11.0)
[2017-04-25 03:38] LABS: ALB/GLOB RATIO 1.1 (1.1-1.8); ALBUMIN 3.4 g/dL (3.0-4.8); ALT/SGPT 59 U/L (7-56); AST/SGOT 79 U/L (15-39); BLOOD UREA NITROGEN 12 mg/dL (7-21); CALCIUM 7.8 mg/dL (8.4-10.5); GFR AFRICAN-AMERICAN > 60; GFR NON-AFRICAN AMERICAN > 60
[2017-04-25 03:57] LABS: TROPONIN I < 0.01 ng/mL
--- NOTE | 2017-04-25 07:15 | CP.PCM.HP ---
Addendum entered and electronically signed by Jocelyne Sewell DO 04/25/17 11:08 : Patient states when she was trying to get out of bed yesterday and slipped and almost fell, but she broke the fall with her left hand, thus her left hand was hurting. Denies hitting her head. Denies LOC. X-ray of the hand negative for fractures. Original Note: <Jocelyne Sewell - Last Filed: 04/25/17 08:21> History of Present Illness - History of Present Illness History of Present Illness: CC: Nausea, vomiting, cough and chills since Friday. Patient is a 56 y/o F with PMH of NIDDM2, morbidly obese sent from PMD's office with nausea, vomiting, and temp of 104.5. Patient states on Friday she felt like she was coming up with a cold, with scratchy throat and runny nose , along with cough productive with whitish sputum. Then On Friday she started to experience chills, tried taking her temp at home, but it was normal. Patient states her symptoms progressed to bilious vomiting, intolerable of food. Patient tried eating baby food with no relief. Patient saw her PMD yesterday, and in the office her temp was 104.5. Patient was sent to ED for further eval. In the ED, Temp was 102.9, patient had episodes of hypotension min SBP in the 70 's, tachypneic, cxr with right medial basilar opacification, sepsis work up was sent, lactic acid 1.4, patient received fluid boluses, antibiotics and toradol for fever. Patient was admitted to med/surg for pneumonia. Patient also had CT abdomen/pelvis revealing diverticulosis and right lower lobe infiltration. Overnight, patient's temp continued to spike, was tachycardic, and hypotensive with SBP in the 70s, DATA MANAGEMENT SPECIALIST was called, labs were repeated, patient received a total of 5 litters of NS overall with BP still in the 90s, with normal procal, prompting ICU team into ordering V/Q scan to r/o PE. V/Q scan revealed low probability for PE. Patient was transferred to ICU for further management. Patient is currently in ICU, reports improvement in her symptoms. Patient's able to drink lukasz miracle, wants to try solids. Patient admits to intermittent coughs, no chills or fever at this time, denies headache, dizziness, denies diarrhea, dysurea, deneis abdominal pain, and denies palpitations. Patient denies h/o CHF, asthma, or MS/stents. PMH: NIDDM2, morbidly obese, depression, insomnia. PSH: FMH: Dad 25 years ago, don't remember the cause, mom alive has DM, and htn. Social: Former tobacco, denies alcohol and illicit drug use. 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 Home meds: please see EMR. Present on Admission - Present on Admission Any Indicators Present on Admission: No History of DVT/PE: No History of Uncontrolled Diabetes: No Urinary Catheter: No Decubitus Ulcer Present: No History Surgical Site Infection Following: None Review of Systems - Review of Systems All systems: reviewed and no additional remarkable complaints except Review of Systems: 12 Point ROS reviewed, all negative except as per HPI. Past Patient History - Infectious Disease Hx of Infectious Diseases: None - Past Social History Smoking Status: Former Smoker Alcohol: None Drugs: Denies Home Situation {Lives}: With Family - CARDIAC Hx Cardiac Disorders: Yes - PULMONARY Hx Respiratory Disorders: No - NEUROLOGICAL Hx Neurological Disorder: No - HEENT Hx HEENT Problems: No - RENAL Hx Chronic Kidney Disease: No - ENDOCRINE/METABOLIC Hx Endocrine Disorders: Yes Hx Diabetes Mellitus Type 2: Yes - HEMATOLOGICAL/ONCOLOGICAL Hx Blood Disorders: No - INTEGUMENTARY Hx Dermatological Problems: No - MUSCULOSKELETAL/RHEUMATOLOGICAL Hx Musculoskeletal Disorders: No - GASTROINTESTINAL Hx Gastrointestinal Disorders: No - GENITOURINARY/GYNECOLOGICAL Hx Genitourinary Disorders: No - PSYCHIATRIC Hx Psychophysiologic Disorder: Yes Hx Anxiety: Yes Hx Depression: Yes Hx Substance Use: No - SURGICAL HISTORY Hx Section: Yes - ANESTHESIA Hx Anesthesia: Yes Hx Anesthesia Reactions: No Hx Malignant Hyperthermia: No Meds Allergies/Adverse Reactions: Allergies Allergy/AdvReac Type Severity Reaction Status Date / Time No Known Allergies Allergy Verified 06/06/16 18:10 Physical Exam - Constitutional Appears: No Acute Distress - Head Exam Head Exam: ATRAUMATIC, NORMAL INSPECTION, NORMOCEPHALIC - Eye Exam Eye Exam: EOMI, Normal appearance, PERRL. absent: Scleral icterus Pupil Exam: NORMAL ACCOMODATION, PERRL - ENT Exam ENT Exam: Mucous Membranes Moist - Neck Exam Neck exam: Positive for: Normal Inspection. Negative for: Lymphadenopathy, Meningismus, Tenderness - Respiratory Exam Respiratory Exam: Rhonchi (right base.), NORMAL BREATHING PATTERN. absent: Rales, Wheezes, Respiratory Distress, Stridor - Cardiovascular Exam Cardiovascular Exam: REGULAR RHYTHM, +S1, +S2. absent: Bradycardia, Tachycardia , Systolic Murmur - GI/Abdominal Exam GI & Abdominal Exam: Normal Bowel Sounds, Soft. absent: Distended, Tenderness - Extremities Exam Extremities exam: Positive for: normal inspection. Negative for: pedal edema - Back Exam Back exam: NORMAL INSPECTION - Neurological Exam Neurological exam: Alert, CN II-XII Intact, Oriented x3, Reflexes Normal - Psychiatric Exam Psychiatric exam: Normal Affect, Normal Mood - Skin Skin Exam: Dry, Intact, Normal Color, Warm Results - Vital Signs Recent Vital Signs: Last Vital Signs Temp 99.4 F 04/25/17 04:00 Pulse 89 04/25/17 06:49 Resp 40 H 04/25/17 06:40 BP 120/45 L 04/25/17 06:00 Pulse Ox 96 04/25/17 06:40 - Labs Result Diagrams: 04/25/17 03:10 04/25/17 03:10 Labs: Laboratory Results - last 24 hr 04/24/17 04/24/17 04/25/17 22:55 22:56 02:58 WBC RBC Hgb Hct MCV MCH MCHC RDW Plt Count MPV Sodium Potassium Chloride Carbon Dioxide Anion Gap BUN Creatinine Est GFR ( Amer) Est GFR (Non-Af Amer) POC Glucose (mg/dL) 165 H Random Glucose Lactic Acid 0.9 Calcium Total Bilirubin AST ALT Alkaline Phosphatase Troponin I Total Protein Albumin Globulin Albumin/Globulin Ratio Influenza Typ A,B (EIA) Negative for flu a/b 04/25/17 04/25/17 03:10 03:10 WBC 10.1 RBC 3.37 L Hgb 10.4 L Hct 30.4 L MCV 90.2 MCH 30.9 MCHC 34.2 RDW 13.9 Plt Count 238 MPV 9.7 Sodium 140 Potassium 4.1 Chloride 108 H Carbon Dioxide 22 Anion Gap 14 BUN 12 Creatinine 0.6 Est GFR ( Amer) > 60 Est GFR (Non-Af Amer) > 60 POC Glucose (mg/dL) Random Glucose 145 H Lactic Acid Calcium 7.8 L Total Bilirubin 0.9 AST 79 H ALT 59 H Alkaline Phosphatase 99 Troponin I < 0.01 Total Protein 6.5 Albumin 3.4 Globulin 3.1 Albumin/Globulin Ratio 1.1 Influenza Typ A,B (EIA) Assessment & Plan - Assessment and Plan (Free Text) Assessment: 1) Sepsis with pneumonia as the possible source 2) Right lower lobe pneumonia 3) Anemia likely dilutional 4) Dyslipedemia 5) Transaminitis - likely transient, shock liker versus WILCOX ( liver with fatty infiltration on CT), versus viral. 6) NIDDM2 7) Diverticulosis 8) Depression 9) insomnia 10) Morbidly obese Plan: On zosyn, Zithromax , and vanco for broad spectrum coverage. bcx, ucx and urine legionella pending, influenza negative. Leukocytosis trended down, procal normal. Will monitor temp and bp. Trop negative x3, pro bnp 422, making it less likely cardiac etiology. Will continue with NS@ 100 cc/hr. on tessalon pearls for cough . ID following Will continue to monitor H/H for now. HIV pending, will add hep panel. Will continue to trend LRTs On tylenol prn for fever, zofran prn for nausea, on paxil for depression. Ambien for insomnia. ISS, mod carb for DM. Patient is also on Lovenox for dvt prophylaxis and Pepcid for Gi prophylaxis. Patient seen, examined and case discussed with Dr Ott. - Date & Time Date: 04/25/17 Time: 07:30 <Ronald Ott S - Last Filed: 04/25/17 14:56> Results - Vital Signs Recent Vital Signs: Last Vital Signs Temp 100.4 F H 04/25/17 12:00 Pulse 102 H 04/25/17 12:00 Resp 45 H 04/25/17 10:20 BP 127/80 04/25/17 10:00 Pulse Ox 94 L 04/25/17 10:20 - Labs Result Diagrams: 04/25/17 03:10 04/25/17 03:10 Labs: Laboratory Results - last 24 hr 04/24/17 04/24/17 04/25/17 22:55 22:56 02:58 WBC RBC Hgb Hct MCV MCH MCHC RDW Plt Count MPV Sodium Potassium Chloride Carbon Dioxide Anion Gap BUN Creatinine Est GFR ( Amer) Est GFR (Non-Af Amer) POC Glucose (mg/dL) 165 H Random Glucose Lactic Acid 0.9 Calcium Total Bilirubin AST ALT Alkaline Phosphatase Troponin I Total Protein Albumin Globulin Albumin/Globulin Ratio Amylase Lipase Influenza Typ A,B (EIA) Negative for flu a/b 04/25/17 04/25/17 04/25/17 03:10 03:10 03:40 WBC 10.1 RBC 3.37 L Hgb 10.4 L Hct 30.4 L MCV 90.2 MCH 30.9 MCHC 34.2 RDW 13.9 Plt Count 238 MPV 9.7 Sodium 140 Potassium 4.1 Chloride 108 H Carbon Dioxide 22 Anion Gap 14 BUN 12 Creatinine 0.6 Est GFR ( Amer) > 60 Est GFR (Non-Af Amer) > 60 POC Glucose (mg/dL) Random Glucose 145 H Lactic Acid Calcium 7.8 L Total Bilirubin 0.9 AST 79 H ALT 59 H Alkaline Phosphatase 99 Troponin I < 0.01 Total Protein 6.5 Albumin 3.4 Globulin 3.1 Albumin/Globulin Ratio 1.1 Amylase < 30 L Lipase 19 L Influenza Typ A,B (EIA) 04/25/17 11:31 WBC RBC Hgb Hct MCV MCH MCHC RDW Plt Count MPV Sodium Potassium Chloride Carbon Dioxide Anion Gap BUN Creatinine Est GFR ( Amer) Est GFR (Non-Af Amer) POC Glucose (mg/dL) 204 H Random Glucose Lactic Acid Calcium Total Bilirubin AST ALT Alkaline Phosphatase Troponin I Total Protein Albumin Globulin Albumin/Globulin Ratio Amylase Lipase Influenza Typ A,B (EIA) Assessment & Plan - Assessment and Plan (Free Text) Plan: Pt seen and exmined by me. I reviewed the note of the resident and agree with it. She has sepsis and is on Abx. I informed her PMD- Dr Marin. The pt is stable and BP is better. meds and labs reviewed. Will continue with IVF.
[2017-04-25] MEDS ORDERED: Iodixanol 320 MG/ML 100 ML BOTTLE IV ONE (07:42)
[2017-04-25 07:48] LABS: AMYLASE < 30 U/L (35-125); LIPASE 19 U/L (23-300)
--- NOTE | 2017-04-25 08:10 | CP.PCM.PN ---
Subjective - Subjective Subjective: PGY-[address] Grigsby ID consult: Sepsis 56 F with PMH of DM, CAD presented to the ED with abd pain with nausea and vomiting, fever, and chills x 4-5 days, gotten progressively worse. Pt is intolerable to any PO intake and vomit green/yellowing watery content At PMD office on ____, pt had >104 degree fever, and PMD send her to ED Pt did report taking Ambien nightly for the past 4 years and abruptly stopping it aprox 4-5 days ago. Upon ED admission T 102.9 oral, HR 125, 120/83, POx 94 RA WBC 14.8, Hb 11.1. AST 41 --> 79 ALT 37 --> 59 Alk Phos, Amylase, lipase wnl Negative flu 2L NS were administered. Started Azithromycin, zosyn, and vanco. CT abd showed a possible RLL infiltrate no acute intra abdominal abnormality. INFORMATION TECHNOLOGY ASSISTANT was called while pt was on the floor. Pt was hypotensive as low as 70/40. 2 Bolus of fluid was administered and BP was 94/60. Lactate of 1.4 and three hour lactate of 1. Trops x 2 negative. BNP 422. ROS - Denies any dizziness, palpitations, sob, cp, diarrhea. PMH: DM - not on med (??) PSH: Nuclear stress: normal stress myocardial perfusion. LVEF 70 FH: mother with DM SH: denies any alcohol, smking or drug usage. Works as a teachers aid for special ed ALL: [employer] Med: Ambien 10 HS, Paxil 10 qd, Xanaz PRN Objective - Vital Signs/Intake and Output Vital Signs (last 24 hours): Temp Pulse Resp BP Pulse Ox 99.4 F 89 40 H 120/45 L 96 04/25/17 04:00 04/25/17 06:49 04/25/17 06:40 04/25/17 06:00 04/25/17 06:40 Intake and Output: 04/25/17 04/25/17 06:59 18:59 Intake Total 100 Output Total 500 Balance -400 - Medications Medications: Current Medications Acetaminophen (Tylenol 325mg Tab) 650 mg PO Q6H PRN PRN Reason: Fever >100.5 F Last Admin: 04/24/17 17:51 Dose: 650 mg Benzonatate (Tessalon Perles) 100 mg PO Q8 PRN PRN Reason: Cough Last Admin: 04/25/17 06:16 Dose: 100 mg Enoxaparin Sodium (Lovenox) 40 mg SC DAILY LUÍS PRN Reason: Protocol Azithromycin (Zithromax 500mg In Ns) 500 mg in 250 mls @ 167 mls/hr IVPB DAILY LUÍS PRN Reason: Protocol Sodium Chloride (Sodium Chloride 0.9%) 1,000 mls @ 100 mls/hr IV .Q10H [facility] Stop: 04/25/17 14:14 Piperacillin Sod/Tazobactam Sod (Zosyn 3.375 In Ns 100ml) 100 mls @ 200 mls/hr IVPB Q6 LUÍS PRN Reason: Protocol Stop: 05/02/17 18:46 Vancomycin HCl (Vancomycin 1gm) 1 gm in 250 mls @ 167 mls/hr IVPB Q12H [facility] PRN Reason: Protocol Ondansetron HCl (Zofran Inj) 4 mg IVP Q4H PRN PRN Reason: Nausea/Vomiting Last Admin: 04/24/17 18:36 Dose: 4 mg Paroxetine HCl (Paxil) 10 mg PO DAILY [facility] Last Admin: 04/24/17 19:00 Dose: Not Given Zolpidem Tartrate (Ambien) 5 mg PO HS LUÍS PRN Reason: Protocol - Labs Labs: 04/25/17 03:10 PT 11.6 Seconds (9.9-11.8) 04/24/17 11:00 INR 1.07 (0.93-1.08) 04/24/17 11:00 APTT 29.2 Seconds (23.7-30.8) 04/24/17 11:00
[2017-04-25] MEDS: Vancomycin 1gm in NS 250ml 1 GM/250 ML BAG IVPB SCH ×2 (08:19→19:41)
--- NOTE | 2017-04-25 08:34 | RAD ---
PROCEDURE: Left Hand Radiographs. HISTORY: Fall, r/o fx COMPARISON: None. FINDINGS: BONES: Bone alignment and mineralization are normal. There is no acute displaced fracture or bone destruction. JOINTS: Normal. No osteoarthritic changes. SOFT TISSUES: Normal. OTHER FINDINGS: None. IMPRESSION: No acute fracture or dislocation.
--- NOTE | 2017-04-25 08:40 | RAD ---
HISTORY: shortness of breath COMPARISON: 04/24/2017. FINDINGS: LUNGS: There is worsening airspace disease in the right lower lobe. The left lung is clear. PLEURA: No significant pleural effusion identified, no pneumothorax apparent. CARDIOVASCULAR: Normal. OSSEOUS STRUCTURES: No significant abnormalities. VISUALIZED UPPER ABDOMEN: Normal. OTHER FINDINGS: None. IMPRESSION: Suspect worsening right lower lobe pneumonia. Follow-up is advised.
--- NOTE | 2017-04-25 08:51 | CARD ---
APPROVED REPORT EKG Measurement Heart [id number] <Conclusion> Sinus tachycardia Left axis deviation. LAHB PRWP STTW changes c/w ischemia
--- NOTE | 2017-04-25 09:09 | CARD ---
APPROVED REPORT EKG Measurement Heart [id number] <Conclusion> Sinus tachycardia Low voltage QRS Left anterior fascicular block PRWP ST & T wave abnormality, consider lateral ischemia No change
--- NOTE | 2017-04-25 09:22 | NM ---
COMPARISON: Chest x-ray 04/25/2017 TECHNIQUE: 33.0 mCi technetium 99-m DTPA aerosol. 3.3 mCI technetium 99-m MAA administered intravenously. FINDINGS: VENTILATION COMPONENT: Normal. PERFUSION COMPONENT: Normal. IMPRESSION: Lowprobability ventilation perfusion scan for pulmonary embolism.
[2017-04-25] MEDS: Enoxaparin 40 mg Syringe SC SCH (10:04)
[2017-04-25] MEDS: Azithromycin 500MG/NS 250ml 500 MG/250 ML BAG IVPB SCH (10:06)
[2017-04-25] MEDS: Sodium Chloride 0.9% 1,000 ML IV SCH (10:09)
--- NOTE | 2017-04-25 11:03 | CP.PCM.CON ---
<Nita Ferrell - Last Filed: 04/25/17 13:40> History of Present Illness - History of Present Illness History of Present Illness: PGY-[address] Grigsby ID consult: Sepsis 56 F with PMH of DM presented to the ED after seeing her PMD, Dr. Marin. Pt complained of feeling fever and chills for several days. For the past 2-3 days, she had N/V and decrease PO intake. She experienced dry heaves and abdominal cramps at LLQ, immediately after any PO intake, which was following by emesis, and then abdominal pain relieves. She felt dizzy when getting up from sitting. Pt is intolerable to any PO intake and vomit green/yellowing watery content. Today has loose BM x 1. At PMD office yesterday, pt had >104 degree fever, and PMD send her to ED. Pt did report taking Ambien nightly for the past 4 years and abruptly stopping it aprox 4-5 days ago. Upon ED admission T 102.9 oral, HR 125, 120/83, POx 94 RA WBC 14.8, Hb 11.1. AST 41 --> 79 ALT 37 --> 59 Alk Phos, Amylase, lipase wnl Negative flu CT abd/pelvis with IV contrast (04/24) showed (1) RLL infiltrate with areas of consolidation and (2) Sigmoid diverticulosis with mural thickening of sigmod colon, likely chronic muscylar hypertrophy. No diverticulitis 2L NS were administered. Started Azithromycin, zosyn, and vanco. CUT OFF SAW OPERATOR was called while pt was on the floor. Pt was hypotensive as low as 70/40. 2 Bolus of fluid was administered and BP was 94/60. Lactate of 1.4 and three hour lactate of 1. Trops x 2 negative. BNP 422. Today, 99.4 AM. CXR showed worsened RLL PNA. Pt desat to 93% while getting back and forth to bedside commode. Cough is hard to produce. ROS - Recent antibitoics use 2-3 months ago for skin infection on R anterior leg with Staph (+) chills, (+) light headed (+) N/V/loosed formed stool Denies CP, SOB, dysuria, other complaints ROS - Denies any dizziness, palpitations, sob, cp, diarrhea. PMH: DM - not on med PSH: Nuclear stress: normal stress myocardial perfusion. LVEF 70 FH: mother with DM SH: denies any alcohol, smking or drug usage. Works as a teachers aid for [employer] ALL: NKA Med: Ambien 10 HS, Paxil 10 qd, Xanaz PRN PMD: Dr. Marin Past Patient History - Infectious Disease Hx of Infectious Diseases: None - Past Social History Smoking Status: Former Smoker Alcohol: None Drugs: Denies Home Situation {Lives}: With Family - CARDIAC Hx Cardiac Disorders: Yes - PULMONARY Hx Respiratory Disorders: No - NEUROLOGICAL Hx Neurological Disorder: No - HEENT Hx HEENT Problems: No - RENAL Hx Chronic Kidney Disease: No - ENDOCRINE/METABOLIC Hx Endocrine Disorders: Yes Hx Diabetes Mellitus Type 2: Yes - HEMATOLOGICAL/ONCOLOGICAL Hx Blood Disorders: No - INTEGUMENTARY Hx Dermatological Problems: No - MUSCULOSKELETAL/RHEUMATOLOGICAL Hx Musculoskeletal Disorders: No - GASTROINTESTINAL Hx Gastrointestinal Disorders: No - GENITOURINARY/GYNECOLOGICAL Hx Genitourinary Disorders: No - PSYCHIATRIC Hx Psychophysiologic Disorder: Yes Hx Anxiety: Yes Hx Depression: Yes Hx Substance Use: No - SURGICAL HISTORY Hx Section: Yes - ANESTHESIA Hx Anesthesia: Yes Hx Anesthesia Reactions: No Hx Malignant Hyperthermia: No Meds Allergies/Adverse Reactions: Allergies Allergy/AdvReac Type Severity Reaction Status Date / Time No Known Allergies Allergy Verified 06/06/16 18:10 - Medications Medications: Current Medications Acetaminophen (Tylenol 325mg Tab) 650 mg PO Q6H PRN PRN Reason: Fever >100.5 F Last Admin: 04/24/17 17:51 Dose: 650 mg Benzonatate (Tessalon Perles) 100 mg PO Q8 PRN PRN Reason: Cough Last Admin: 04/25/17 06:16 Dose: 100 mg Enoxaparin Sodium (Lovenox) 40 mg SC DAILY LUÍS PRN Reason: Protocol Last Admin: 04/25/17 10:04 Dose: 40 mg Famotidine (Pepcid) 40 mg PO HS LUÍS Azithromycin (Zithromax 500mg In Ns) 500 mg in 250 mls @ 167 mls/hr IVPB DAILY LU[facility]S PRN Reason: Protocol Last Admin: 04/25/17 10:06 Dose: 167 mls/hr Piperacillin Sod/Tazobactam Sod (Zosyn 3.375 In Ns 100ml) 100 mls @ 200 mls/hr IVPB Q6 LU[facility]S PRN Reason: Protocol Stop: 05/02/17 18:46 Vancomycin HCl (Vancomycin 1gm) 1 gm in 250 mls @ 167 mls/hr IVPB Q12H [facility]S PRN Reason: Protocol Last Admin: 04/25/17 08:19 Dose: 167 mls/hr Sodium Chloride (Sodium Chloride 0.9%) 1,000 mls @ 100 mls/hr IV .Q10H [facility] Last Admin: 04/25/17 10:09 Dose: 100 mls/hr Insulin Human Lispro (Humalog Low) 0 units SC ACHS LUÍS PRN Reason: Protocol Ondansetron HCl (Zofran Inj) 4 mg IVP Q4H PRN PRN Reason: Nausea/Vomiting Last Admin: 04/24/17 18:36 Dose: 4 mg Paroxetine HCl (Paxil) 10 mg PO DAILY [facility] Last Admin: 04/25/17 10:06 Dose: 10 mg Zolpidem Tartrate (Ambien) 5 mg PO HS LU[facility]S PRN Reason: Protocol Physical Exam - Constitutional Appears: No Acute Distress - Head Exam Head Exam: ATRAUMATIC, NORMAL INSPECTION, NORMOCEPHALIC - Eye Exam Eye Exam: EOMI, Normal appearance, PERRL. absent: Scleral icterus Pupil Exam: NORMAL ACCOMODATION - ENT Exam ENT Exam: Mucous Membranes Moist - Neck Exam Additional comments: supple - Respiratory Exam Respiratory Exam: Decreased Breath Sounds (all lung farrar), Rales. absent: Rhonchi, Wheezes - Cardiovascular Exam Cardiovascular Exam: REGULAR RHYTHM, +S1, +S2 - GI/Abdominal Exam GI & Abdominal Exam: Soft. absent: Distended, Firm, Tenderness - Extremities Exam Extremities exam: Positive for: normal capillary refill. Negative for: calf tenderness, pedal edema - Back Exam Back exam: absent: CVA tenderness (L), CVA tenderness (R) - Neurological Exam Neurological exam: Alert, Oriented x3 - Psychiatric Exam Psychiatric exam: Normal Affect, Normal Mood - Skin Skin Exam: Dry, Warm Results - Vital Signs Recent Vital Signs: Last Vital Signs Temp 99.4 F 04/25/17 04:00 Pulse 113 H 04/25/17 10:20 Resp 45 H 04/25/17 10:20 BP 127/80 04/25/17 10:00 Pulse Ox 94 L 04/25/17 10:20 - Labs Result Diagrams: 04/25/17 03:10 04/25/17 03:10 Labs: Laboratory Results - last 24 hr 04/24/17 04/24/17 04/25/17 22:55 22:56 02:58 WBC RBC Hgb Hct MCV MCH MCHC RDW Plt Count MPV Sodium Potassium Chloride Carbon Dioxide Anion Gap BUN Creatinine Est GFR ( Amer) Est GFR (Non-Af Amer) POC Glucose (mg/dL) 165 H Random Glucose Lactic Acid 0.9 Calcium Total Bilirubin AST ALT Alkaline Phosphatase Troponin I Total Protein Albumin Globulin Albumin/Globulin Ratio Amylase Lipase Influenza Typ A,B (EIA) Negative for flu a/b 04/25/17 04/25/17 04/25/17 03:10 03:10 03:40 WBC 10.1 RBC 3.37 L Hgb 10.4 L Hct 30.4 L MCV 90.2 MCH 30.9 MCHC 34.2 RDW 13.9 Plt Count 238 MPV 9.7 Sodium 140 Potassium 4.1 Chloride 108 H Carbon Dioxide 22 Anion Gap 14 BUN 12 Creatinine 0.6 Est GFR ( Amer) > 60 Est GFR (Non-Af Amer) > 60 POC Glucose (mg/dL) Random Glucose 145 H Lactic Acid Calcium 7.8 L Total Bilirubin 0.9 AST 79 H ALT 59 H Alkaline Phosphatase 99 Troponin I < 0.01 Total Protein 6.5 Albumin 3.4 Globulin 3.1 Albumin/Globulin Ratio 1.1 Amylase < 30 L Lipase 19 L Influenza Typ A,B (EIA) Assessment & Plan - Assessment and Plan (Free Text) Plan: 56 F is now in ICU for severe sepsis for CAP at RLL with transaminitis R/O gallbladder or liver disease causing pneumonitis Hypovolemia - Azithromycin, zosyn, vanco (day 1) - Follow up on blood and sputum culture - Follow up on hepatitis panel, abdominal u/s; trend LFTs - Continue to observe VSS and s/s progression - CURB-65 = 2, moderate risk 6.8% of 30-day mortality Imaging: CT abd/pelvis with IV contrast (04/24) showed (1) RLL infiltrate with areas of consolidation and (2) Sigmoid diverticulosis with mural thickening of sigmod colon, likely chronic muscylar hypertrophy. No diverticulitis Cultures: Urine culture (8/3) negative Blood culture (8/3) negative x 1 day Sputum culture (8/4) collected MRSA screen pending S/r/d with Dr. Grigsby - Date & Time Date: 04/25/17 Time: 11:08 <Camilo Grigsby - Last Filed: 04/25/17 14:26> Meds - Medications Medications: Current Medications Acetaminophen (Tylenol 325mg Tab) 650 mg PO Q6H PRN PRN Reason: Fever >100.5 F Last Admin: 04/24/17 17:51 Dose: 650 mg Benzonatate (Tessalon Perles) 100 mg PO Q8 PRN PRN Reason: Cough Last Admin: 04/25/17 14:08 Dose: 100 mg Enoxaparin Sodium (Lovenox) 40 mg SC DAILY [facility] PRN Reason: Protocol Last Admin: 04/25/17 10:04 Dose: 40 mg Famotidine (Pepcid) 40 mg PO HS [facility] Azithromycin (Zithromax 500mg In Ns) 500 mg in 250 mls @ 167 mls/hr IVPB DAILY [facility] PRN Reason: Protocol Last Admin: 04/25/17 10:06 Dose: 167 mls/hr Piperacillin Sod/Tazobactam Sod (Zosyn 3.375 In Ns 100ml) 100 mls @ 200 mls/hr IVPB Q6 [facility]S PRN Reason: Protocol Stop: 05/02/17 18:46 Vancomycin HCl (Vancomycin 1gm) 1 gm in 250 mls @ 167 mls/hr IVPB Q12H [facility] PRN Reason: Protocol Last Admin: 04/25/17 08:19 Dose: 167 mls/hr Sodium Chloride (Sodium Chloride 0.9%) 1,000 mls @ 100 mls/hr IV .Q10H [facility] Last Admin: 04/25/17 10:09 Dose: 100 mls/hr Insulin Human Lispro (Humalog Low) 0 units SC ACHS [facility]S PRN Reason: Protocol Last Admin: 04/25/17 12:17 Dose: 2 units Ondansetron HCl (Zofran Inj) 4 mg IVP Q4H PRN PRN Reason: Nausea/Vomiting Last Admin: 04/25/17 12:18 Dose: 4 mg Paroxetine HCl (Paxil) 10 mg PO DAILY [facility] Last Admin: 04/25/17 10:06 Dose: 10 mg Zolpidem Tartrate (Ambien) 5 mg PO HS [facility]S PRN Reason: Protocol Results - Vital Signs Recent Vital Signs: Last Vital Signs Temp 100.4 F H 04/25/17 12:00 Pulse 102 H 04/25/17 12:00 Resp 45 H 04/25/17 10:20 BP 127/80 04/25/17 10:00 Pulse Ox 94 L 04/25/17 10:20 - Labs Result Diagrams: 04/25/17 03:10 04/25/17 03:10 Labs: Laboratory Results - last 24 hr 04/24/17 04/24/17 04/25/17 22:55 22:56 02:58 WBC RBC Hgb Hct MCV MCH MCHC RDW Plt Count MPV Sodium Potassium Chloride Carbon Dioxide Anion Gap BUN Creatinine Est GFR ( Amer) Est GFR (Non-Af Amer) POC Glucose (mg/dL) 165 H Random Glucose Lactic Acid 0.9 Calcium Total Bilirubin AST ALT Alkaline Phosphatase Troponin I Total Protein Albumin Globulin Albumin/Globulin Ratio Amylase Lipase Influenza Typ A,B (EIA) Negative for flu a/b 04/25/17 04/25/17 04/25/17 03:10 03:10 03:40 WBC 10.1 RBC 3.37 L Hgb 10.4 L Hct 30.4 L MCV 90.2 MCH 30.9 MCHC 34.2 RDW 13.9 Plt Count 238 MPV 9.7 Sodium 140 Potassium 4.1 Chloride 108 H Carbon Dioxide 22 Anion Gap 14 BUN 12 Creatinine 0.6 Est GFR ( Amer) > 60 Est GFR (Non-Af Amer) > 60 POC Glucose (mg/dL) Random Glucose 145 H Lactic Acid Calcium 7.8 L Total Bilirubin 0.9 AST 79 H ALT 59 H Alkaline Phosphatase 99 Troponin I < 0.01 Total Protein 6.5 Albumin 3.4 Globulin 3.1 Albumin/Globulin Ratio 1.1 Amylase < 30 L Lipase 19 L Influenza Typ A,B (EIA) 04/25/17 11:31 WBC RBC Hgb Hct MCV MCH MCHC RDW Plt Count MPV Sodium Potassium Chloride Carbon Dioxide Anion Gap BUN Creatinine Est GFR ( Amer) Est GFR (Non-Af Amer) POC Glucose (mg/dL) 204 H Random Glucose Lactic Acid Calcium Total Bilirubin AST ALT Alkaline Phosphatase Troponin I Total Protein Albumin Globulin Albumin/Globulin Ratio Amylase Lipase Influenza Typ A,B (EIA) Assessment & Plan - Assessment and Plan (Free Text) Plan: Infectious Diseases Attending Physician Attestation Patient seen and examined, discussed with emergency medical technician. Agree with above findings, assessment and plan. In addition, we will follow up blood, sputum cx, PCT for this patient with sepsis due to right sided healthcare-associated pneumonia. Continue Vancomycin, Zosyn and Zithromax.
[2017-04-25] MEDS: Insulin Lispro (humaLOG) LOW Coverage SC SCH ×3 (12:17→22:25)
--- NOTE | 2017-04-25 15:55 | CP.PCM.PN ---
<Carlos Flores - Last Filed: 04/25/17 15:42> Subjective - Date & Time of Evaluation Date of Evaluation: 04/25/17 Time of Evaluation: 10:20 - Subjective Subjective: Pt was seen and examined at bedside. Pt has a dry cough. No acute or adverse events overnight. Objective - Vital Signs/Intake and Output Vital Signs (last 24 hours): Temp Pulse Resp BP Pulse Ox 103 F H 102 H 45 H 127/80 94 L 04/25/17 15:28 04/25/17 12:00 04/25/17 10:20 04/25/17 10:00 04/25/17 10:20 Intake and Output: 04/25/17 04/25/17 06:59 18:59 Intake Total 100 Output Total 500 Balance -400 - Medications Medications: Current Medications Acetaminophen (Tylenol 325mg Tab) 650 mg PO Q6H PRN PRN Reason: Fever >100.5 F Last Admin: 04/25/17 15:28 Dose: 650 mg Benzonatate (Tessalon Perles) 100 mg PO Q8 PRN PRN Reason: Cough Last Admin: 04/25/17 14:08 Dose: 100 mg Enoxaparin Sodium (Lovenox) 40 mg SC DAILY [facility] PRN Reason: Protocol Last Admin: 04/25/17 10:04 Dose: 40 mg Famotidine (Pepcid) 40 mg PO HS [facility] Azithromycin (Zithromax 500mg In Ns) 500 mg in 250 mls @ 167 mls/hr IVPB DAILY [facility] PRN Reason: Protocol Last Admin: 04/25/17 10:06 Dose: 167 mls/hr Piperacillin Sod/Tazobactam Sod (Zosyn 3.375 In Ns 100ml) 100 mls @ 200 mls/hr IVPB Q6 [facility] PRN Reason: Protocol Stop: 05/02/17 18:46 Vancomycin HCl (Vancomycin 1gm) 1 gm in 250 mls @ 167 mls/hr IVPB Q12H [facility] PRN Reason: Protocol Last Admin: 04/25/17 08:19 Dose: 167 mls/hr Sodium Chloride (Sodium Chloride 0.9%) 1,000 mls @ 100 mls/hr IV .Q10H [facility] Last Admin: 04/25/17 10:09 Dose: 100 mls/hr Insulin Human Lispro (Humalog Low) 0 units SC ACHS [facility]S PRN Reason: Protocol Last Admin: 04/25/17 12:17 Dose: 2 units Ondansetron HCl (Zofran Inj) 4 mg IVP Q4H PRN PRN Reason: Nausea/Vomiting Last Admin: 04/25/17 12:18 Dose: 4 mg Paroxetine HCl (Paxil) 10 mg PO DAILY [facility] Last Admin: 04/25/17 10:06 Dose: 10 mg Zolpidem Tartrate (Ambien) 5 mg PO HS [facility]S PRN Reason: Protocol - Labs Labs: 04/25/17 03:10 04/25/17 03:10 PT 11.6 Seconds (9.9-11.8) 04/24/17 11:00 INR 1.07 (0.93-1.08) 04/24/17 11:00 APTT 29.2 Seconds (23.7-30.8) 04/24/17 11:00 Assessment and Plan - Assessment and Plan (Free Text) Assessment: 56 F with pmh of DM and anxiety admitted to ICU for close monitoring for sepsis 2/2 rt sided community acquired pna. Neuro: AAO x 3; stable Pulm: - rt sided community acquired pna. - Azithromycin, zosyn, vanco - CURB-65 = 2 - V/q scan low probability for PE - Maintain SAO2 > 94% - f/u strep pna ag, legionella ag CV: - EKbpm sinus tach, L ant fasicular block ST & T wave abnormality, consider lateral ischemia - Trops x 2 negative - F/u morning trops - Maintain MAP > 65 - S/p 5 L bolus NS - NS @ 100 GI: - HHD, GI ppx - Stable - CT abd/pelvis demonstrated RLL infiltrate with areas of consolidation and Sigmoid diverticulosis with mural thickening of sigmod colon. No diverticulitis - transaminitis likely 2/2 episode of hypotension Endo: - Maintain euglycemic with blood sugars 140-180 Renal: - Strict I and O - Monitor electrolytes ID: - febrile, no leukocytosis - Azithromycin, zosyn, vanco as per ID Dr. Grigsby - Negative blood and urine cx, pending sputum - lactic acid downtrending - Tylenol PRN for fevers GI/DVT ppx: - Lovenox and protonix <Kali Alexander MD H - Last Filed: 04/25/17 17:18> Objective - Vital Signs/Intake and Output Vital Signs (last 24 hours): Temp Pulse Resp BP Pulse Ox 98.4 F 102 H 45 H 127/80 94 L 04/25/17 17:13 04/25/17 12:00 04/25/17 10:20 04/25/17 10:00 04/25/17 10:20 Intake and Output: 04/25/17 04/25/17 06:59 18:59 Intake Total 100 Output Total 500 Balance -400 - Medications Medications: Current Medications Acetaminophen (Tylenol 325mg Tab) 650 mg PO Q6H PRN PRN Reason: Fever >100.5 F Last Admin: 04/25/17 15:28 Dose: 650 mg Albuterol Sulfate (Albuterol 0.083% Inhal Michelle (2.5 Mg/3 Ml) Ud) 2.5 mg INH [id number] LUÍS Benzonatate (Tessalon Perles) 100 mg PO Q8 PRN PRN Reason: Cough Last Admin: 04/25/17 14:08 Dose: 100 mg Enoxaparin Sodium (Lovenox) 40 mg SC DAILY [facility]S PRN Reason: Protocol Last Admin: 04/25/17 10:04 Dose: 40 mg Famotidine (Pepcid) 40 mg PO HS [facility]S Guaifenesin/Codeine Phosphate (Robitussin W/Codeine) 5 ml PO Q4H PRN PRN Reason: Cough and congestion Azithromycin (Zithromax 500mg In Ns) 500 mg in 250 mls @ 167 mls/hr IVPB DAILY [facility] PRN Reason: Protocol Last Admin: 04/25/17 10:06 Dose: 167 mls/hr Piperacillin Sod/Tazobactam Sod (Zosyn 3.375 In Ns 100ml) 100 mls @ 200 mls/hr IVPB Q6 [facility] PRN Reason: Protocol Stop: 05/02/17 18:46 Vancomycin HCl (Vancomycin 1gm) 1 gm in 250 mls @ 167 mls/hr IVPB Q12H [facility] PRN Reason: Protocol Last Admin: 04/25/17 08:19 Dose: 167 mls/hr Sodium Chloride (Sodium Chloride 0.9%) 1,000 mls @ 100 mls/hr IV .Q10H [facility] Last Admin: 04/25/17 10:09 Dose: 100 mls/hr Insulin Human Lispro (Humalog Low) 0 units SC ACHS [facility]S PRN Reason: Protocol Last Admin: 04/25/17 17:08 Dose: 1 units Ondansetron HCl (Zofran Inj) 4 mg IVP Q4H PRN PRN Reason: Nausea/Vomiting Last Admin: 04/25/17 12:18 Dose: 4 mg Paroxetine HCl (Paxil) 10 mg PO DAILY [facility] Last Admin: 04/25/17 10:06 Dose: 10 mg Zolpidem Tartrate (Ambien) 5 mg PO HS [facility]S PRN Reason: Protocol - Labs Labs: 04/25/17 03:10 04/25/17 03:10 PT 11.6 Seconds (9.9-11.8) 04/24/17 11:00 INR 1.07 (0.93-1.08) 04/24/17 11:00 APTT 29.2 Seconds (23.7-30.8) 04/24/17 11:00 Attending/Attestation - Attestation I have personally seen and examined this patient.: Yes I have fully participated in the care of the patient.: Yes I have reviewed all pertinent clinical information, including history, physical exam and plan: Yes Notes (Text): 04/25/17 17:16 56 y/o F admitted to ICU w/ SIRS sepsis w/ RLL PNA On Empiric abx w/ ID following . Fevers continued and on ABX and Tylenol PRN. ABD Pain w/o CT findings . Nausea noted. CX pending , Nebs PRN DVT P PPI CC time 45 min
[2017-04-25 17:03] LABS: HEPATITIS B SURFACE AG NEGATIVE (NEGATIVE)
[2017-04-25 17:09] LABS: HEPATITIS A IGM NEGATIVE (NEGATIVE)
[2017-04-25 17:10] LABS: HEPATITIS B CORE AB NEGATIVE (NEGATIVE)
[2017-04-25 17:20] LABS: HEPATITIS C ANTIBODY NEGATIVE (NEGATIVE)
[2017-04-25] MEDS ORDERED: Piperacillin/Tazobact 3.375 gm 100 ML IVPB SCH (18:45)
[2017-04-25] MEDS: Albuterol 0.083% Inhal Sol (2.5 mg/3 mL) UD INH SCH (19:45)
[2017-04-25 20:28] LABS: URINE BILIRUBIN NEGATIVE (NEGATIVE); URINE BLOOD TRACE-LYSED (NEGATIVE); URINE GLUCOSE (UA) NEGATIVE (NEGATIVE); URINE LEUKOCYTE ESTERASE NEGATIVE Leu/uL (NEGATIVE); URINE NITRATE NEGATIVE (NEGATIVE); URINE PROTEIN TRACE mg/dL (<30 mg/dL)
[2017-04-25 20:37] LABS: URINE APPEARANCE CLEAR (CLEAR); URINE COLOR YELLOW (YELLOW)
[2017-04-25 21:04] LABS: URINE RBC 0 - 2 /hpf (0-2); URINE WBC 0 - 2 /hpf (0-6)
[2017-04-25 21:05] LABS: URINE EPITHELIAL CELLS 0 - 2 /hpf (0-5)
[2017-04-26] MEDS: Albuterol 0.083% Inhal Sol (2.5 mg/3 mL) UD INH SCH ×6 (00:10→20:40)
[2017-04-26] MEDS: Sodium Chloride 0.9% 1,000 ML IV SCH ×3 (01:23→21:30)
[2017-04-26] MEDS: guaiFENesin-Codeine 100-10mg/5ml Syrup (5 ml) UD PO PRN ×4 (01:47→20:48)
[2017-04-26 06:09] LABS: BASO # 0.01 K/mm3 (0.0-2.0); BASO % 0.1 % (0.0-3.0); EOS % 0.1 % (1.5-5.0); GRAN # 6.18 (1.4-6.5); GRAN % 78.5 % (50.0-68.0); HEMOGLOBIN 9.1 gm/dL (12.0-16.0); LYMPH % 12.4 % (22.0-35.0); MEAN CELL VOLUME 88.7 fL (80.0-105.0); MEAN CORPUSCULAR HEMOGLOBIN 30.2 pg (25.0-35.0); MEAN CORPUSCULAR HGB CONC 34.1 g/dl (31.0-37.0); MEAN PLATELET VOLUME 10.1 fl (7.0-11.0); MONO # 0.7 (0.1-0.6); MONO % 8.9 % (1.0-6.0); PLATELET COUNT 246 10^3/uL (120.0-450.0); RBC 3.01 10^6/uL (3.5-6.1); RED CELL DISTRIBUTION WIDTH 13.9 % (11.5-14.5); WHITE BLOOD COUNT 7.9 10^3/ul (4.5-11.0)
[2017-04-26 06:18] LABS: ALBUMIN 2.9 g/dL (3.0-4.8); ALT/SGPT 62 U/L (7-56); AST/SGOT 63 U/L (15-39); BLOOD UREA NITROGEN 8 mg/dL (7-21); GFR AFRICAN-AMERICAN > 60; GFR NON-AFRICAN AMERICAN > 60
[2017-04-26] MEDS: Insulin Lispro (humaLOG) LOW Coverage SC SCH ×4 (08:12→21:39)
[2017-04-26] MEDS: Meropenem 1g/NS 100mL IVPB 1 GM/100 ML PIGGYBACK IVPB SCH ×3 (08:12→21:48)
[2017-04-26] MEDS: Vancomycin 1gm in NS 250ml 1 GM/250 ML BAG IVPB SCH ×2 (08:14→18:39)
[2017-04-26] MEDS: Enoxaparin 40 mg Syringe SC SCH (09:39)
[2017-04-26] MEDS: Azithromycin 500MG/NS 250ml 500 MG/250 ML BAG IVPB SCH (09:40)
--- NOTE | 2017-04-26 11:40 | CP.PCM.PN ---
Subjective - Date & Time of Evaluation Date of Evaluation: 04/26/17 Time of Evaluation: 10:50 - Subjective Subjective: Patient still had fever yesterday but none this morning. States she is breathing better, no nausea, no abdominal pain. Objective - Vital Signs/Intake and Output Vital Signs (last 24 hours): Temp Pulse Resp BP Pulse Ox 98.9 F 102 H 28 H 112/51 L 95 04/26/17 04:00 04/26/17 05:50 04/26/17 05:50 04/26/17 05:00 04/26/17 05:50 - Medications Medications: Current Medications Acetaminophen (Tylenol 325mg Tab) 650 mg PO Q6H PRN PRN Reason: Fever >100.5 F Last Admin: 04/25/17 15:28 Dose: 650 mg Albuterol Sulfate (Albuterol 0.083% Inhal Michelle (2.5 Mg/3 Ml) Ud) 2.5 mg INH [id number] LUÍS Last Admin: 04/26/17 07:01 Dose: 2.5 mg Benzonatate (Tessalon Perles) 100 mg PO Q8 PRN PRN Reason: Cough Last Admin: 04/25/17 14:08 Dose: 100 mg Enoxaparin Sodium (Lovenox) 40 mg SC DAILY [facility]S PRN Reason: Protocol Last Admin: 04/25/17 10:04 Dose: 40 mg Famotidine (Pepcid) 40 mg PO HS [facility] Last Admin: 04/25/17 22:23 Dose: 40 mg Guaifenesin/Codeine Phosphate (Robitussin W/Codeine) 5 ml PO Q4H PRN PRN Reason: Cough and congestion Last Admin: 04/26/17 01:47 Dose: 5 ml Azithromycin (Zithromax 500mg In Ns) 500 mg in 250 mls @ 167 mls/hr IVPB DAILY [facility] PRN Reason: Protocol Last Admin: 04/25/17 10:06 Dose: 167 mls/hr Vancomycin HCl (Vancomycin 1gm) 1 gm in 250 mls @ 167 mls/hr IVPB Q12H [facility] PRN Reason: Protocol Last Admin: 04/25/17 19:41 Dose: 167 mls/hr Sodium Chloride (Sodium Chloride 0.9%) 1,000 mls @ 100 mls/hr IV .Q10H [facility] Last Admin: 04/26/17 01:23 Dose: 100 mls/hr Meropenem 1g/NS 100mL IVPB (Meropenem 1g/Ns 100ml Ivpb) 100 mls @ 100 mls/hr IVPB Q8 [facility]S PRN Reason: Protocol Stop: 05/03/17 07:16 Insulin Human Lispro (Humalog Low) 0 units SC ACHS [facility]S PRN Reason: Protocol Last Admin: 04/25/17 22:25 Dose: Not Given Ondansetron HCl (Zofran Inj) 4 mg IVP Q4H PRN PRN Reason: Nausea/Vomiting Last Admin: 04/25/17 12:18 Dose: 4 mg Paroxetine HCl (Paxil) 10 mg PO DAILY [facility] Last Admin: 04/25/17 10:06 Dose: 10 mg Zolpidem Tartrate (Ambien) 5 mg PO HS [facility]S PRN Reason: Protocol Last Admin: 04/25/17 21:22 Dose: 5 mg - Labs Labs: 04/26/17 05:30 04/26/17 05:30 PT 11.6 Seconds (9.9-11.8) 04/24/17 11:00 INR 1.07 (0.93-1.08) 04/24/17 11:00 APTT 29.2 Seconds (23.7-30.8) 04/24/17 11:00 - Constitutional Appears: Non-toxic, No Acute Distress - Head Exam Head Exam: NORMAL INSPECTION - ENT Exam ENT Exam: Mucous Membranes Moist - Neck Exam Neck Exam: absent: Meningismus - Respiratory Exam Respiratory Exam: Decreased Breath Sounds - Cardiovascular Exam Cardiovascular Exam: +S1, +S2 - GI/Abdominal Exam GI & Abdominal Exam: Soft. absent: Tenderness Assessment and Plan - Assessment and Plan (Free Text) Plan: Assessment Sepsis due to right lower lobe healthcare-associated pneumonia with possible gram positive cocci and/or gram negative bacilli DM obesity with BMI 37 Plan Continue Vancomycin and Zithromax and changed Zosyn to Merrem (day 2); cultures have been negative follow up results of the abdominal ultrasound will monitor clinically and trend fever curve
--- NOTE | 2017-04-26 15:03 | CP.PCM.PN ---
<CLAUDIA LARA - Last Filed: 04/26/17 15:00> Subjective - Date & Time of Evaluation Date of Evaluation: 04/26/17 Time of Evaluation: 07:30 - Subjective Subjective: Claudia Lara DO PGY1 - ICU Progress Note Patient seen and examined at bedside. Patient reports improved SOB, but is coughing more. Nurses report no fevers overnight. Patient is still not tolerating PO and vomits after every meal. Objective - Vital Signs/Intake and Output Vital Signs (last 24 hours): Temp Pulse Resp BP Pulse Ox 98.9 F 79 36 H 110/69 95 04/26/17 04:00 04/26/17 10:40 04/26/17 10:40 04/26/17 10:31 04/26/17 10:40 - Medications Medications: Current Medications Acetaminophen (Tylenol 325mg Tab) 650 mg PO Q6H PRN PRN Reason: Fever >100.5 F Last Admin: 04/26/17 14:13 Dose: 650 mg Albuterol Sulfate (Albuterol 0.083% Inhal Michelle (2.5 Mg/3 Ml) Ud) 2.5 mg INH [id number] [facility] Last Admin: 04/26/17 11:10 Dose: 2.5 mg Benzonatate (Tessalon Perles) 100 mg PO Q8 PRN PRN Reason: Cough Last Admin: 04/25/17 14:08 Dose: 100 mg Enoxaparin Sodium (Lovenox) 40 mg SC DAILY [facility] PRN Reason: Protocol Last Admin: 04/26/17 09:39 Dose: 40 mg Famotidine (Pepcid) 40 mg PO HS [facility] Last Admin: 04/25/17 22:23 Dose: 40 mg Guaifenesin/Codeine Phosphate (Robitussin W/Codeine) 5 ml PO Q4H PRN PRN Reason: Cough and congestion Last Admin: 04/26/17 14:13 Dose: 5 ml Azithromycin (Zithromax 500mg In Ns) 500 mg in 250 mls @ 167 mls/hr IVPB DAILY [facility] PRN Reason: Protocol Last Admin: 04/26/17 09:40 Dose: 167 mls/hr Vancomycin HCl (Vancomycin 1gm) 1 gm in 250 mls @ 167 mls/hr IVPB Q12H [facility] PRN Reason: Protocol Last Admin: 04/26/17 08:14 Dose: 167 mls/hr Sodium Chloride (Sodium Chloride 0.9%) 1,000 mls @ 100 mls/hr IV .Q10H [facility] Last Admin: 04/26/17 09:41 Dose: 100 mls/hr Meropenem 1g/NS 100mL IVPB (Meropenem 1g/Ns 100ml Ivpb) 1 gm in 100 mls @ 100 mls/hr IVPB Q8 [facility] PRN Reason: Protocol Stop: 05/03/17 07:16 Last Admin: 04/26/17 14:06 Dose: 100 mls/hr Insulin Human Lispro (Humalog Low) 0 units SC ACHS [facility] PRN Reason: Protocol Last Admin: 04/26/17 12:45 Dose: 1 units Ondansetron HCl (Zofran Inj) 4 mg IVP Q4H PRN PRN Reason: Nausea/Vomiting Last Admin: 04/26/17 14:14 Dose: 4 mg Paroxetine HCl (Paxil) 10 mg PO DAILY [facility] Last Admin: 04/26/17 09:39 Dose: 10 mg Zolpidem Tartrate (Ambien) 5 mg PO HS [facility] PRN Reason: Protocol Last Admin: 04/25/17 21:22 Dose: 5 mg - Labs Labs: 04/26/17 05:30 04/26/17 05:30 PT 11.6 Seconds (9.9-11.8) 04/24/17 11:00 INR 1.07 (0.93-1.08) 04/24/17 11:00 APTT 29.2 Seconds (23.7-30.8) 04/24/17 11:00 - Constitutional Appears: Non-toxic, No Acute Distress - Head Exam Head Exam: ATRAUMATIC, NORMOCEPHALIC - Eye Exam Eye Exam: EOMI, Normal appearance - ENT Exam ENT Exam: Mucous Membranes Moist, Normal Exam - Neck Exam Neck Exam: Normal Inspection. absent: Lymphadenopathy, Meningismus - Respiratory Exam Respiratory Exam: Rales, Rhonchi, NORMAL BREATHING PATTERN - Cardiovascular Exam Cardiovascular Exam: RRR, +S1, +S2 - GI/Abdominal Exam GI & Abdominal Exam: Soft, Normal Bowel Sounds. absent: Tenderness - Extremities Exam Extremities Exam: absent: Pedal Edema, Tenderness - Neurological Exam Neurological Exam: Alert, Awake, Oriented x3 - Psychiatric Exam Psychiatric exam: Normal Affect, Normal Mood Assessment and Plan - Assessment and Plan (Free Text) Assessment: 56 F with pmh of DM and anxiety admitted to ICU for close monitoring for sepsis 2/2 rt sided community acquired pna. Neuro: AAO x 3; stable Pulm: - rt sided community acquired pna. - Azithromycin, vanco. Switched zosyn to merrem per ID - CURB-65 = 2 - V/q scan low probability for PE - Maintain SAO2 > 94% - strep pna ag, legionella ag negative - Albuterol PRN, Robitussin PRN, Benzonatate PRN, CV: - EKbpm sinus tach, L ant fasicular block ST & T wave abnormality, consider lateral ischemia - Trops persistently negative - Maintain MAP > 65 - S/p 5 L bolus NS - NS @ 100 GI: - HHD, GI ppx - Continues to vomit, unable to tolerate PO - CT abd/pelvis demonstrated RLL infiltrate with areas of consolidation and Sigmoid diverticulosis with mural thickening of sigmod colon. No diverticulitis - transaminitis likely 2/2 episode of hypotension - Abdominal US complete, pending read Endo: - Maintain euglycemic with blood sugars 140-180 Renal: - Strict I and O - Monitor electrolytes ID: - Currently afebrile, no leukocytosis - Azithromycin, merrem, vanco as per ID Dr. Grigsby - Negative blood and urine cx, pending sputum - lactic acid downtrending - Tylenol PRN for fevers GI/DVT ppx: - Lovenox and protonix <Catherine BROWN,Inamul H - Last Filed: 04/26/17 17:13> Objective - Vital Signs/Intake and Output Vital Signs (last 24 hours): Temp Pulse Resp BP Pulse Ox 98.9 F 90 34 H 122/64 94 L 04/26/17 04:00 04/26/17 15:20 04/26/17 15:10 04/26/17 15:00 04/26/17 15:20 - Medications Medications: Current Medications Acetaminophen (Tylenol 325mg Tab) 650 mg PO Q6H PRN PRN Reason: Fever >100.5 F Last Admin: 04/26/17 14:13 Dose: 650 mg Albuterol Sulfate (Albuterol 0.083% Inhal Michelle (2.5 Mg/3 Ml) Ud) 2.5 mg INH [id number] [facility] Last Admin: 04/26/17 15:18 Dose: 2.5 mg Benzonatate (Tessalon Perles) 100 mg PO Q8 PRN PRN Reason: Cough Last Admin: 04/25/17 14:08 Dose: 100 mg Enoxaparin Sodium (Lovenox) 40 mg SC DAILY [facility] PRN Reason: Protocol Last Admin: 04/26/17 09:39 Dose: 40 mg Famotidine (Pepcid) 40 mg PO HS [facility] Last Admin: 04/25/17 22:23 Dose: 40 mg Guaifenesin/Codeine Phosphate (Robitussin W/Codeine) 5 ml PO Q4H PRN PRN Reason: Cough and congestion Last Admin: 04/26/17 14:13 Dose: 5 ml Azithromycin (Zithromax 500mg In Ns) 500 mg in 250 mls @ 167 mls/hr IVPB DAILY [facility] PRN Reason: Protocol Last Admin: 04/26/17 09:40 Dose: 167 mls/hr Vancomycin HCl (Vancomycin 1gm) 1 gm in 250 mls @ 167 mls/hr IVPB Q12H [facility] PRN Reason: Protocol Last Admin: 04/26/17 08:14 Dose: 167 mls/hr Sodium Chloride (Sodium Chloride 0.9%) 1,000 mls @ 100 mls/hr IV .Q10H [facility] Last Admin: 04/26/17 09:41 Dose: 100 mls/hr Meropenem 1g/NS 100mL IVPB (Meropenem 1g/Ns 100ml Ivpb) 1 gm in 100 mls @ 100 mls/hr IVPB Q8 [facility] PRN Reason: Protocol Stop: 05/03/17 07:16 Last Admin: 04/26/17 14:06 Dose: 100 mls/hr Insulin Human Lispro (Humalog Low) 0 units SC ACHS [facility] PRN Reason: Protocol Last Admin: 04/26/17 12:45 Dose: 1 units Ondansetron HCl (Zofran Inj) 4 mg IVP Q4H PRN PRN Reason: Nausea/Vomiting Last Admin: 04/26/17 14:14 Dose: 4 mg Paroxetine HCl (Paxil) 10 mg PO DAILY [facility] Last Admin: 04/26/17 09:39 Dose: 10 mg Zolpidem Tartrate (Ambien) 5 mg PO HS [facility] PRN Reason: Protocol Last Admin: 04/25/17 21:22 Dose: 5 mg - Labs Labs: 04/26/17 05:30 04/26/17 05:30 PT 11.6 Seconds (9.9-11.8) 04/24/17 11:00 INR 1.07 (0.93-1.08) 04/24/17 11:00 APTT 29.2 Seconds (23.7-30.8) 04/24/17 11:00 Attending/Attestation - Attestation I have personally seen and examined this patient.: Yes I have fully participated in the care of the patient.: Yes I have reviewed all pertinent clinical information, including history, physical exam and plan: Yes Notes (Text): 04/26/17 17:12 56 y/o F w/ RLL PNA with SOB, COugh and dyspnea. On Empiric abx w/ CX pending. Fevers have resolved since last evening. Nausea and vomiting , unclear cause. Possibly related to constant coughing. JOSIE likely, BIPAP qhs. PT/PT Out of bed to chair. DVT P cc time 55 min
[2017-04-27] MEDS: Albuterol 0.083% Inhal Sol (2.5 mg/3 mL) UD INH SCH ×5 (00:10→23:30)
[2017-04-27] MEDS: guaiFENesin-Codeine 100-10mg/5ml Syrup (5 ml) UD PO PRN ×2 (02:05→14:38)
[2017-04-27] MEDS: Sodium Chloride 0.9% 1,000 ML IV SCH ×2 (03:34→18:51)
[2017-04-27] MEDS: Meropenem 1g/NS 100mL IVPB 1 GM/100 ML PIGGYBACK IVPB SCH ×3 (05:29→22:07)
[2017-04-27] MEDS: Vancomycin 1gm in NS 250ml 1 GM/250 ML BAG IVPB SCH ×2 (06:29→18:50)
[2017-04-27 07:02] LABS: BASO # 0.02 K/mm3 (0.0-2.0); BASO % 0.3 % (0.0-3.0); EOS # 0.1 (0.0-0.7); EOS % 0.6 % (1.5-5.0); GRAN # 5.72 (1.4-6.5); GRAN % 73.5 % (50.0-68.0); HEMOGLOBIN 8.7 gm/dL (12.0-16.0); LYMPH # 1.2 (1.2-3.4); LYMPH % 15.6 % (22.0-35.0); MEAN CELL VOLUME 88.5 fL (80.0-105.0); MEAN CORPUSCULAR HEMOGLOBIN 30.2 pg (25.0-35.0); MEAN CORPUSCULAR HGB CONC 34.1 g/dl (31.0-37.0); MEAN PLATELET VOLUME 9.9 fl (7.0-11.0); MONO # 0.8 (0.1-0.6); PLATELET COUNT 266 10^3/uL (120.0-450.0); RBC 2.88 10^6/uL (3.5-6.1); RED CELL DISTRIBUTION WIDTH 14.1 % (11.5-14.5); WHITE BLOOD COUNT 7.8 10^3/ul (4.5-11.0)
[2017-04-27 07:34] LABS: ALBUMIN 2.7 g/dL (3.0-4.8); ALT/SGPT 54 U/L (7-56); AST/SGOT 36 U/L (15-39); BLOOD UREA NITROGEN 5 mg/dL (7-21); CALCIUM 8.1 mg/dL (8.4-10.5); GFR AFRICAN-AMERICAN > 60; GFR NON-AFRICAN AMERICAN > 60
[2017-04-27] MEDS: Insulin Lispro (humaLOG) LOW Coverage SC SCH ×4 (08:29→22:09)
[2017-04-27 10:53] LABS: % IRON SATURATION 15 % (20-55); IRON 30 ug/dL (45-180); TOTAL IRON BINDING CAPACITY 204 ug/dL (265-497)
[2017-04-27] MEDS: Azithromycin 500MG/NS 250ml 500 MG/250 ML BAG IVPB SCH (10:56)
[2017-04-27] MEDS: Enoxaparin 40 mg Syringe SC SCH (10:56)
--- NOTE | 2017-04-27 11:09 | CP.PCM.PN ---
Subjective - Date & Time of Evaluation Date of Evaluation: 04/27/17 Time of Evaluation: 09:40 - Subjective Subjective: Still with low grade fever last night, has occasional headache, still with cough but breathing better. Objective - Vital Signs/Intake and Output Vital Signs (last 24 hours): Temp Pulse Resp BP Pulse Ox 98.8 F 89 18 121/68 93 L 04/27/17 06:00 04/27/17 06:00 04/27/17 06:00 04/27/17 06:00 04/27/17 06:00 Intake and Output: 04/26/17 04/27/17 18:59 06:59 Intake Total 1350 300 Output Total 1 Balance 1350 299 - Medications Medications: Current Medications Acetaminophen (Tylenol 325mg Tab) 650 mg PO Q6H PRN PRN Reason: Fever >100.5 F Last Admin: 04/26/17 22:41 Dose: 650 mg Albuterol Sulfate (Albuterol 0.083% Inhal Michelle (2.5 Mg/3 Ml) Ud) 2.5 mg INH [id number] [facility] Last Admin: 04/27/17 00:10 Dose: Not Given Benzonatate (Tessalon Perles) 100 mg PO Q8 PRN PRN Reason: Cough Last Admin: 04/25/17 14:08 Dose: 100 mg Enoxaparin Sodium (Lovenox) 40 mg SC DAILY [facility] PRN Reason: Protocol Last Admin: 04/26/17 09:39 Dose: 40 mg Famotidine (Pepcid) 40 mg PO HS [facility] Last Admin: 04/26/17 21:47 Dose: 40 mg Guaifenesin/Codeine Phosphate (Robitussin W/Codeine) 5 ml PO Q4H PRN PRN Reason: Cough and congestion Last Admin: 04/27/17 02:05 Dose: 5 ml Azithromycin (Zithromax 500mg In Ns) 500 mg in 250 mls @ 167 mls/hr IVPB DAILY [facility] PRN Reason: Protocol Last Admin: 04/26/17 09:40 Dose: 167 mls/hr Vancomycin HCl (Vancomycin 1gm) 1 gm in 250 mls @ 167 mls/hr IVPB Q12H [facility] PRN Reason: Protocol Last Admin: 04/27/17 06:29 Dose: 167 mls/hr Sodium Chloride (Sodium Chloride 0.9%) 1,000 mls @ 100 mls/hr IV .Q10H [facility] Last Admin: 04/27/17 03:34 Dose: Not Given Meropenem 1g/NS 100mL IVPB (Meropenem 1g/Ns 100ml Ivpb) 1 gm in 100 mls @ 100 mls/hr IVPB Q8 [facility] PRN Reason: Protocol Stop: 05/03/17 07:16 Last Admin: 04/27/17 05:29 Dose: 100 mls/hr Insulin Human Lispro (Humalog Low) 0 units SC ACHS [facility] PRN Reason: Protocol Last Admin: 04/26/17 21:39 Dose: Not Given Ondansetron HCl (Zofran Inj) 4 mg IVP Q4H PRN PRN Reason: Nausea/Vomiting Last Admin: 04/26/17 14:14 Dose: 4 mg Paroxetine HCl (Paxil) 10 mg PO DAILY [facility] Last Admin: 04/26/17 09:39 Dose: 10 mg Zolpidem Tartrate (Ambien) 5 mg PO HS [facility] PRN Reason: Protocol Last Admin: 04/26/17 21:48 Dose: 5 mg - Labs Labs: 04/26/17 05:30 04/26/17 05:30 PT 11.6 Seconds (9.9-11.8) 04/24/17 11:00 INR 1.07 (0.93-1.08) 04/24/17 11:00 APTT 29.2 Seconds (23.7-30.8) 04/24/17 11:00 - Constitutional Appears: Non-toxic, No Acute Distress - Head Exam Head Exam: NORMAL INSPECTION - ENT Exam ENT Exam: Mucous Membranes Moist - Neck Exam Neck Exam: absent: Meningismus - Respiratory Exam Respiratory Exam: Decreased Breath Sounds - Cardiovascular Exam Cardiovascular Exam: +S1, +S2 - GI/Abdominal Exam GI & Abdominal Exam: Soft. absent: Tenderness Assessment and Plan - Assessment and Plan (Free Text) Plan: Assessment Sepsis due to right lower lobe healthcare-associated pneumonia with possible gram positive cocci and/or gram negative bacilli DM obesity with BMI 37 Plan Continue Vancomycin and Zithromax and Merrem (day 3); cultures have been negative; will target 4-7 days of therapy follow up results of the abdominal ultrasound will monitor clinically and trend fever curve
--- NOTE | 2017-04-27 12:52 | US ---
HISTORY: transaminitis r/o gall bladder liver disease COMPARISON: CT abdomen and pelvis 04/24/2017 TECHNIQUE: Sonographic evaluation of the abdomen. FINDINGS: LIVER: Liver demonstrates increased echogenicity, likely representing hepatic parenchymal disease or fatty infiltration. This limits evaluation for small masses. No focal large liver mass is identified. No intrahepatic biliary ductal dilatation is identified. Portal vein is patent with normal hepatopetal flow. GALLBLADDER: The gallbladder is physiologically distended. There are 2 mildly Echogenic, nonmobile masses within the gallbladder measuring 0.9 cm and 0.7, likely polyps versus sludge balls. No gallstones, gallbladder wall thickening, or pericholecystic fluid is identified.No sonographic Salazar's sign was appreciated during the exam. COMMON BILE DUCT: Normal in caliber measuring 0.3 cm. PANCREAS: The visualized portions are unremarkable in echogenicity. The remainder of the pancreas is obscured by bowel gas. RIGHT KIDNEY: Measures 12.8cm. Unremarkable in echogenicity. No shadowing renal stone, cyst, or hydronephrosis is identified LEFT KIDNEY: Measures 12.6cm. Unremarkable in echogenicity. No shadowing renal stone, cyst, or hydronephrosis is identified SPLEEN: Measures 9.3cm. Suboptimally visualized and normal in size. AORTA: No aneurysmal dilatation of the visualized portions. IVC: Visualized portions are unremarkable.. OTHER FINDINGS: None. IMPRESSION: Echogenic liver, likely representing fatty infiltration or hepatic parenchymal disease. Gallbladder polyps versus sludge balls measuring up to 0.9 cm as above; recommend follow-up abdominal ultrasound in 3-6 months. Preliminary impression was provided by [facility]. Findings are concordant.
[2017-04-27 17:42] LABS: FOLATE 18.3 ng/mL
--- NOTE | 2017-04-27 21:18 | CP.PCM.PN ---
Subjective - Date & Time of Evaluation Date of Evaluation: 04/27/17 Time of Evaluation: 21:15 - Subjective Subjective: Patient was seen at bedside . States that she has had headache all day which is not going away inspite of her getting tylenol Wants something stronger for headache. Headache is mild, mostly in right frontal parietal area. Has no other complaints. Denies nausea, dizziness, light headedness, chest pain, sob. BP is 125/74,Pulse ox is 96% Room Air,Temp: 98.5*F. Medical record was reviewed. 56 year old white woman was admitted from PMD's office for nausea,vomiting,T: 104.5*F. PMH: CAD,DM II,obesity,diverticulosis,depression,smoker, Objective - Vital Signs/Intake and Output Vital Signs (last 24 hours): Temp Pulse Resp BP Pulse Ox 97.7 F 77 18 128/80 93 L 04/27/17 16:50 04/27/17 18:00 04/27/17 16:50 04/27/17 16:50 04/27/17 06:00 Intake and Output: 04/27/17 04/28/17 18:59 06:59 Intake Total 540 Output Total 500 Balance 40 - Medications Medications: Current Medications Acetaminophen (Tylenol 325mg Tab) 650 mg PO Q6H PRN PRN Reason: Fever >100.5 F Last Admin: 04/27/17 11:37 Dose: 650 mg Albuterol Sulfate (Albuterol 0.083% Inhal Michelle (2.5 Mg/3 Ml) Ud) 2.5 mg INH [id number] [facility] Last Admin: 04/27/17 11:50 Dose: 2.5 mg Benzonatate (Tessalon Perles) 100 mg PO Q8 PRN PRN Reason: Cough Last Admin: 04/25/17 14:08 Dose: 100 mg Enoxaparin Sodium (Lovenox) 40 mg SC DAILY [facility] PRN Reason: Protocol Last Admin: 04/27/17 10:56 Dose: 40 mg Famotidine (Pepcid) 40 mg PO HS [facility] Last Admin: 04/26/17 21:47 Dose: 40 mg Guaifenesin/Codeine Phosphate (Robitussin W/Codeine) 5 ml PO Q4H PRN PRN Reason: Cough and congestion Last Admin: 04/27/17 14:38 Dose: 5 ml Azithromycin (Zithromax 500mg In Ns) 500 mg in 250 mls @ 167 mls/hr IVPB DAILY [facility] PRN Reason: Protocol Last Admin: 04/27/17 10:56 Dose: 167 mls/hr Vancomycin HCl (Vancomycin 1gm) 1 gm in 250 mls @ 167 mls/hr IVPB Q12H [facility] PRN Reason: Protocol Last Admin: 04/27/17 18:50 Dose: 167 mls/hr Sodium Chloride (Sodium Chloride 0.9%) 1,000 mls @ 100 mls/hr IV .Q10H [facility] Last Admin: 04/27/17 18:51 Dose: 100 mls/hr Meropenem 1g/NS 100mL IVPB (Meropenem 1g/Ns 100ml Ivpb) 1 gm in 100 mls @ 100 mls/hr IVPB Q8 [facility] PRN Reason: Protocol Stop: 05/03/17 07:16 Last Admin: 04/27/17 14:36 Dose: 100 mls/hr Insulin Human Lispro (Humalog Low) 0 units SC ACHS [facility] PRN Reason: Protocol Last Admin: 04/27/17 16:19 Dose: Not Given Ondansetron HCl (Zofran Inj) 4 mg IVP Q4H PRN PRN Reason: Nausea/Vomiting Last Admin: 04/27/17 08:31 Dose: 4 mg Paroxetine HCl (Paxil) 10 mg PO DAILY [facility] Last Admin: 04/27/17 10:56 Dose: 10 mg Zolpidem Tartrate (Ambien) 5 mg PO HS [facility] PRN Reason: Protocol Last Admin: 04/26/17 21:48 Dose: 5 mg - Labs Labs: 04/27/17 06:15 04/27/17 06:15 PT 11.6 Seconds (9.9-11.8) 04/24/17 11:00 INR 1.07 (0.93-1.08) 04/24/17 11:00 APTT 29.2 Seconds (23.7-30.8) 04/24/17 11:00 Micro Results 04/25/17 11:40 Sputum Gram Stain - Final 04/25/17 11:40 Sputum Sputum Culture - Final NORMAL SAPROPHYTIC RENEE 04/24/17 11:00 Blood Blood Culture - Preliminary NO GROWTH AFTER 3 DAYS 04/24/17 10:40 Blood Blood Culture - Preliminary NO GROWTH AFTER 3 DAYS 04/25/17 00:30 Naris MRSA Culture (Admit) - Final MRSA NOT DETECTED 04/24/17 13:00 Urine Urine Culture - Final No Growth (<1,000 CFU/ML) Most Recent Lab Values WBC 7.8 10^3/ul (4.5-11.0) 04/27/17 06:15 RBC 2.88 10^6/uL (3.5-6.1) L 04/27/17 06:15 Hgb 8.7 gm/dL (12.0-16.0) L 04/27/17 06:15 Hct 25.5 % (36.0-48.0) L 04/27/17 06:15 MCV 88.5 fL (80.0-105.0) 04/27/17 06:15 MCH 30.2 pg (25.0-35.0) 04/27/17 06:15 MCHC 34.1 g/dl (31.0-37.0) 04/27/17 06:15 RDW 14.1 % (11.5-14.5) 04/27/17 06:15 Plt Count 266 10^3/uL (120.0-450.0) 04/27/17 06:15 MPV 9.9 fl (7.0-11.0) 04/27/17 06:15 Gran % 73.5 % (50.0-68.0) H 04/27/17 06:15 Lymph % (Auto) 15.6 % (22.0-35.0) L 04/27/17 06:15 [place] % (Auto) 10.0 % (1.0-6.0) H 04/27/17 06:15 Eos % (Auto) 0.6 % (1.5-5.0) L 04/27/17 06:15 Baso % (Auto) 0.3 % (0.0-3.0) 04/27/17 06:15 Gran # 5.72 (1.4-6.5) 04/27/17 06:15 Lymph # 1.2 (1.2-3.4) 04/27/17 06:15 [place] # 0.8 (0.1-0.6) H 04/27/17 06:15 Eos # 0.1 (0.0-0.7) 04/27/17 06:15 Baso # 0.02 K/mm3 (0.0-2.0) 04/27/17 06:15 PT 11.6 Seconds (9.9-11.8) 04/24/17 11:00 INR 1.07 (0.93-1.08) 04/24/17 11:00 APTT 29.2 Seconds (23.7-30.8) 04/24/17 11:00 pO2 55 mm/Hg (30-55) 04/24/17 20:13 VBG pH 7.38 (7.32-7.43) 04/24/17 20:13 VBG pCO2 38.0 (40-60) L 04/24/17 20:13 VBG HCO3 22.5 mmol/l (21-28) 04/24/17 20:13 VBG Total CO2 23.7 mmol.L (22-28) 04/24/17 11:00 VBG O2 Sat (Calc) 93.6 % (40-65) H 04/24/17 20:13 VBG Base Excess -2.4 mmol/L (0.0-2.0) L 04/24/17 20:13 VBG Potassium 4.2 mmol/L (3.6-5.2) 04/24/17 11:00 Sodium 142.0 mmol/L (132-148) 04/24/17 11:00 Chloride 87.0 mmol/L (98-107) L 04/24/17 11:00 Glucose 201 mg/dl (65-105) H 04/24/17 11:00 Lactate 1.4 mmol/L (0.7-2.1) 04/24/17 11:00 FiO2 21.0 % 04/24/17 11:00 Sodium 139 mmol/L (132-148) 04/27/17 06:15 Potassium 3.7 mmol/L (3.6-5.0) 04/27/17 06:15 Chloride 104 mmol/L (98-107) 04/27/17 06:15 Carbon Dioxide 29 mmol/L (21-33) 04/27/17 06:15 Anion Gap 10 (10-20) 04/27/17 06:15 BUN 5 mg/dL (7-21) L 04/27/17 06:15 Creatinine 0.6 mg/dL (0.5-1.4) 04/27/17 06:15 Est GFR ( Amer) > 60 04/27/17 06:15 Est GFR (Non-Af Amer) > 60 04/27/17 06:15 POC Glucose (mg/dL) 136 mg/dL (65-110) H 04/27/17 16:11 Random Glucose 128 mg/dL (70-110) H 04/27/17 06:15 Lactic Acid 0.9 mmol/L (0.7-2.1) 04/24/17 22:55 Calcium 8.1 mg/dL (8.4-10.5) L 04/27/17 06:15 Phosphorus 2.8 mg/dL (2.5-4.5) 04/24/17 11:00 Magnesium 1.9 mg/dL (1.7-2.2) 04/24/17 11:00 Iron 30 ug/dL (45-180) L 04/27/17 07:30 TIBC 204 ug/dL (265-497) L 04/27/17 07:30 % Saturation 15 % (20-55) L 04/27/17 07:30 Ferritin 406.0 ng/mL 04/27/17 07:30 Total Bilirubin 0.3 mg/dL (0.2-1.3) 04/27/17 06:15 AST 36 U/L (15-39) 04/27/17 06:15 ALT 54 U/L (7-56) 04/27/17 06:15 Alkaline Phosphatase 103 U/L (38-133) 04/27/17 06:15 Lactate Dehydrogenase 515 U/L (333-699) 04/24/17 11:00 Total Creatine Kinase 98 U/L (35-230) 04/24/17 11:00 Troponin I < 0.01 ng/mL 04/25/17 03:10 NT-Pro-B Natriuret Pep 422 pg/mL (0-450) 04/24/17 20:13 Total Protein 5.5 g/dL (5.8-8.3) L 04/27/17 06:15 Albumin 2.7 g/dL (3.0-4.8) L 04/27/17 06:15 Globulin 2.8 gm/dL 04/27/17 06:15 Albumin/Globulin Ratio 1.0 (1.1-1.8) L 04/27/17 06:15 Amylase < 30 U/L (35-125) L 04/25/17 03:40 Lipase 19 U/L (23-300) L 04/25/17 03:40 Vitamin B12 315 pg/mL (239-931) 04/27/17 07:30 Folate 18.3 ng/mL 04/27/17 07:30 Procalcitonin 0.23 NG/ML (0.19-0.49) 04/24/17 11:00 Venous Blood Potassium 4.2 mmol/L (3.6-5.2) 04/24/17 11:00 Urine Color Yellow (YELLOW) 04/25/17 18:30 Urine Appearance Clear (CLEAR) 04/25/17 18:30 Urine pH 6.0 (4.7-8.0) 04/25/17 18:30 Ur Specific [place] 1.015 (1.005-1.035) 04/25/17 18:30 Urine Protein Trace mg/dL (<30 mg/dL) H 04/25/17 18:30 Urine Glucose (UA) Negative mg/dL (NEGATIVE) 04/25/17 18:30 Urine Ketones Negative mg/dL (NEGATIVE) 04/25/17 18:30 Urine Blood Trace-lysed (NEGATIVE) H 04/25/17 18:30 Urine Nitrate Negative (NEGATIVE) 04/25/17 18:30 Urine Bilirubin Negative (NEGATIVE) 04/25/17 18:30 Urine Urobilinogen 2.0 E.U./dL (<1 E.U./dL) H 04/25/17 18:30 Ur Leukocyte Esterase Negative Amna/uL (NEGATIVE) 04/25/17 18:30 Urine RBC 0 - 2 /hpf (0-2) 04/25/17 18:30 Urine WBC 0 - 2 /hpf (0-6) 04/25/17 18:30 Ur Epithelial Cells 0 - 2 /hpf (0-5) 04/25/17 18:30 Urine Bacteria Trace (NEG) 04/24/17 13:00 Hepatitis A IgM Ab Negative (NEGATIVE) 04/25/17 08:29 Hep Bs Antigen Negative (NEGATIVE) 04/25/17 08:29 Hep B Core IgM Ab Negative (NEGATIVE) 04/25/17 08:29 Hepatitis C Antibody Negative (NEGATIVE) 04/25/17 08:29 Influenza Typ A,B (EIA) Negative for flu a/b (NEGATIVE) 04/25/17 02:58 Ur L.pneumophila Ag Negative (NEGATIVE) 04/25/17 20:00 - Constitutional Appears: Well, No Acute Distress - Head Exam Head Exam: ATRAUMATIC, NORMAL INSPECTION, NORMOCEPHALIC - Eye Exam Eye Exam: Normal appearance - ENT Exam ENT Exam: Normal External Ear Exam - Neck Exam Neck Exam: Normal Inspection - Respiratory Exam Respiratory Exam: NORMAL BREATHING PATTERN - Cardiovascular Exam Cardiovascular Exam: absent: JVD - GI/Abdominal Exam GI & Abdominal Exam: absent: Distended - Rectal Exam Rectal Exam: Deferred - Exam Additional comments: Deferred. - Extremities Exam Extremities Exam: Normal Inspection - Back Exam Back Exam: NORMAL INSPECTION - Neurological Exam Neurological Exam: Alert, Oriented x3 - Psychiatric Exam Psychiatric exam: Normal Affect, Normal Mood - Skin Skin Exam: Normal Color Assessment and Plan - Assessment and Plan (Free Text) Assessment: Headache. CAD. DM II. Obesity. Depression. Smoker. Plan: Tramodol 50 mg PO stat. Continue present management.
--- NOTE | 2017-04-28 00:25 | PN ---
DATE: 04/27/2017 SUBJECTIVE: She is feeling better. Breathing has improved. She is transferred out of ICU to regular floor. Denies any shortness of breath. No events overnight. No fever. No cough with expectoration. Hemoglobin declined to 8.7. No obvious bleeding. White count declined to 7.8. MEDICATIONS: Tylenol 650 mg q. 6 hours p.r.n., Albuterol DuoNeb q. 6 hours, Zithromax daily, Lovenox 40 mg subcu daily, Pepcid 40 mg daily, Robitussin p.r.n., sliding scale insulin, meropenem q. 8 hours, vancomycin 1 g q. 12 hours, Ambien 5 mg daily, Paxil 10 mg daily. LABORATORY DATA: White count 7.8, hemoglobin 8.7, hematocrit 25.5, platelet count 266. Sodium 139, potassium 3.7, creatinine 0.6. Iron 30, iron saturation 15%, B12 is 315, folate 18.3. Sputum culture and blood cultures negative. ASSESSMENT: 1. Sepsis. 2. Right upper lobe pneumonia. 3. Diabetes mellitus type 2. 4. Anemia. 5. Leukocytosis. 6. Iron deficiency. PLAN: We will continue IV antibiotics as per Infectious Disease, Zithromax, meropenem, and vancomycin. She is currently improving. Continue DVT prophylaxis 40 mg subcu Lovenox daily. Continue bronchodilators. She is currently on IV fluids 800 mL an hour. We will discontinue tomorrow once oral intake improves. Continue Pepcid 40 mg at bedtime. Severe iron deficiency. I would recommend sending stool occult blood. Further workup can be done once she is in stable condition. Katlyn Carroll MD
--- NOTE | 2017-04-28 00:33 | PN ---
DATE: 04/26/2017 HISTORY OF PRESENT ILLNESS: The patient is a 56-year-old female admitted to the hospital with high fever. She was hypotensive on admission with systolic pressure of 70. She was transferred to ICU. She has right lower lobe pneumonia which was improving, likely has sepsis related to pneumonia. A V/Q scan was ordered to rule out pulmonary embolism that was low probability. She is comfortable in bed, fever spike declined. Denies any chest pain. No nausea, no cough, no shortness of breath. PAST MEDICAL HISTORY: Diabetes mellitus type 2, morbid obesity, depression, insomnia. PAST SURGICAL HISTORY: . FAMILY HISTORY: Positive for diabetes mellitus and hypertension. No cancer in the family. SOCIAL HISTORY: Former smoker. No history of drug abuse. REVIEW OF SYSTEMS: As per HPI. A 12-point review of systems reviewed and negative. ALLERGIES: NO KNOWN DRUG ALLERGIES. PHYSICAL EXAMINATION GENERAL: Comfortable in bed, in no acute distress. VITAL SIGNS: Temperature 99.4, heart rate is 89 per minute, blood pressure 120/70, pulse oximetry is 96 per minute. HEENT: Normal. Oral mucosa moist. CHEST: Air entry present and equal bilateral, no added sounds. CARDIOVASCULAR: S1, S2 normal. No murmur, no gallop. ABDOMEN: Soft, nontender. No hepatosplenomegaly. EXTREMITIES: No edema. [employer]: Alert and oriented x3. No focal sensory or motor deficits. SKIN: No petechiae, no rash. SPINE: Nontender. LYMPHADENOPATHY: None. LABORATORY DATA: White count 7.9, hemoglobin 9.1, previously white count was 14.8, platelet count 246. Sodium 139, potassium 3.7, BUN 5, creatinine 0.6, glucose 154, calcium 8.1, iron 30, iron saturation 15. CURRENT MEDICATIONS: Tylenol 650 q.6 hours p.r.n., albuterol, DuoNebs, Zithromax, Lovenox 40 mg subcutaneous daily, Pepcid 40 mg at bedtime, sliding scale insulin, Zofran IV q.4 hours p.r.n., meropenem q.8 hours, Paxil 10 mg daily, vancomycin, and Ambien. ASSESSMENT: 1. Right upper lobe pneumonia. 2. Sepsis. 3. Anemia. 4. Leukocytosis. 5. Diabetes mellitus type 2. 6. Morbid obesity. PLAN: She is currently on IV antibiotic, meropenem and vancomycin. We will continue ID following. No nausea, no vomiting. Continue DVT prophylaxis with 40 mg of Lovenox subcutaneous daily. She is on bronchodilators. Iron studies ordered showed iron deficiency. Iron low at 30. She needs further workup and evaluation for iron deficiency anemia, HIV. Hepatitis serology is negative. Katlyn Carroll MD
[2017-04-28] MEDS: Sodium Chloride 0.9% 1,000 ML IV SCH (02:58)
[2017-04-28] MEDS: Meropenem 1g/NS 100mL IVPB 1 GM/100 ML PIGGYBACK IVPB SCH ×2 (05:30→14:14)
[2017-04-28 06:06] LABS: BASO # 0.02 K/mm3 (0.0-2.0); BASO % 0.3 % (0.0-3.0); EOS # 0.1 (0.0-0.7); EOS % 1.4 % (1.5-5.0); GRAN # 5.27 (1.4-6.5); GRAN % 68.1 % (50.0-68.0); HEMOGLOBIN 9.1 gm/dL (12.0-16.0); LYMPH # 1.5 (1.2-3.4); LYMPH % 18.9 % (22.0-35.0); MEAN CELL VOLUME 88.4 fL (80.0-105.0); MEAN PLATELET VOLUME 10.1 fl (7.0-11.0); MONO # 0.9 (0.1-0.6); MONO % 11.3 % (1.0-6.0); PLATELET COUNT 330 10^3/uL (120.0-450.0); RBC 3.03 10^6/uL (3.5-6.1); RED CELL DISTRIBUTION WIDTH 14.3 % (11.5-14.5); WHITE BLOOD COUNT 7.7 10^3/ul (4.5-11.0)
[2017-04-28 06:16] LABS: ALT/SGPT 51 U/L (7-56); AST/SGOT 35 U/L (15-39); BLOOD UREA NITROGEN 6 mg/dL (7-21); CALCIUM 8.4 mg/dL (8.4-10.5); GFR AFRICAN-AMERICAN > 60; GFR NON-AFRICAN AMERICAN > 60
[2017-04-28 06:34] VITALS: TEMP 98.1; O2SAT 95
--- NOTE | 2017-04-28 06:50 | CP.PCM.PN ---
<Nita Ferrell - Last Filed: 04/28/17 10:41> Subjective - Date & Time of Evaluation Date of Evaluation: 04/28/17 Time of Evaluation: 06:48 - Subjective Subjective: PGY-[address] Grigsby 100.0 two nights ago. Objective - Vital Signs/Intake and Output Vital Signs (last 24 hours): Temp Pulse Resp BP Pulse Ox 98.1 F 67 20 125/60 95 04/28/17 06:00 04/28/17 06:00 04/28/17 06:00 04/28/17 06:00 04/28/17 06:00 Intake and Output: 04/27/17 04/28/17 18:59 06:59 Intake Total 540 1840 Output Total 500 Balance 40 1840 - Medications Medications: Current Medications Acetaminophen (Tylenol 325mg Tab) 650 mg PO Q6H PRN PRN Reason: Fever >100.5 F Last Admin: 04/27/17 11:37 Dose: 650 mg Albuterol Sulfate (Albuterol 0.083% Inhal Michelle (2.5 Mg/3 Ml) Ud) 2.5 mg INH [id number] [facility] Last Admin: 04/27/17 23:30 Dose: Not Given Benzonatate (Tessalon Perles) 100 mg PO Q8 PRN PRN Reason: Cough Last Admin: 04/27/17 22:11 Dose: 100 mg Enoxaparin Sodium (Lovenox) 40 mg SC DAILY [facility] PRN Reason: Protocol Last Admin: 04/27/17 10:56 Dose: 40 mg Famotidine (Pepcid) 40 mg PO HS [facility] Last Admin: 04/27/17 22:07 Dose: 40 mg Guaifenesin/Codeine Phosphate (Robitussin W/Codeine) 5 ml PO Q4H PRN PRN Reason: Cough and congestion Last Admin: 04/27/17 14:38 Dose: 5 ml Azithromycin (Zithromax 500mg In Ns) 500 mg in 250 mls @ 167 mls/hr IVPB DAILY [facility] PRN Reason: Protocol Last Admin: 04/27/17 10:56 Dose: 167 mls/hr Vancomycin HCl (Vancomycin 1gm) 1 gm in 250 mls @ 167 mls/hr IVPB Q12H [facility] PRN Reason: Protocol Last Admin: 04/27/17 18:50 Dose: 167 mls/hr Sodium Chloride (Sodium Chloride 0.9%) 1,000 mls @ 100 mls/hr IV .Q10H [facility] Last Admin: 04/28/17 02:58 Dose: 100 mls/hr Meropenem 1g/NS 100mL IVPB (Meropenem 1g/Ns 100ml Ivpb) 1 gm in 100 mls @ 100 mls/hr IVPB Q8 [facility] PRN Reason: Protocol Stop: 05/03/17 07:16 Last Admin: 04/28/17 05:30 Dose: 100 mls/hr Insulin Human Lispro (Humalog Low) 0 units SC ACHS [facility] PRN Reason: Protocol Last Admin: 04/27/17 22:09 Dose: Not Given Ondansetron HCl (Zofran Inj) 4 mg IVP Q4H PRN PRN Reason: Nausea/Vomiting Last Admin: 04/27/17 08:31 Dose: 4 mg Paroxetine HCl (Paxil) 10 mg PO DAILY [facility] Last Admin: 04/27/17 10:56 Dose: 10 mg Zolpidem Tartrate (Ambien) 5 mg PO HS [facility] PRN Reason: Protocol Last Admin: 04/27/17 22:08 Dose: 5 mg - Labs Labs: 04/28/17 05:20 04/28/17 05:20 PT 11.6 Seconds (9.9-11.8) 04/24/17 11:00 INR 1.07 (0.93-1.08) 04/24/17 11:00 APTT 29.2 Seconds (23.7-30.8) 04/24/17 11:00 Assessment and Plan - Assessment and Plan (Free Text) Plan: 56 F was in ICU for severe sepsis for CAP at [facility], now downgraded to telemetry Unlikely gallbladder or liver disease causing pneumonitis Nausea and vomiting Transaminitis - resolved Hypovolemia - resolved Plan - Vanco, merrem, azithromax (day 4) with target 4-7 days of therapy - No fever. PO levaquine 3-5 more days - Monitor clinically and trend fever curve - Follow up on blood culture - CURB-65 = 2, moderate risk 6.8% of 30-day mortality - F/u abdominal u/s in 3-6 month - Negative hep panel, flu, legionella Imaging: - CT abd/pelvis with IV contrast (04/24) (1) RLL infiltrate with areas of consolidation (2) Sigmoid diverticulosis with mural thickening of sigmod colon, likely chronic muscylar hypertrophy. No diverticulitis - Abdominal u/s (04/25) Echogenic liver likely fatty infiltrate or hepatic parenchymal dz Gallbladder polyps vs sludge balls 0.9cm Cultures: - Urine culture (04/24) negative - Blood culture (04/24) negative x 3 day - Sputum culture (04/25) normal saprophytic cullen - MRSA screen negative Will S/r/d with Dr. Grigsby <Camilo Grigsby S - Last Filed: 04/28/17 10:44> Objective - Vital Signs/Intake and Output Vital Signs (last 24 hours): Temp Pulse Resp BP Pulse Ox 98.1 F 81 20 125/60 95 04/28/17 06:00 04/28/17 09:07 04/28/17 06:00 04/28/17 06:00 04/28/17 06:00 Intake and Output: 04/28/17 04/28/17 06:59 18:59 Intake Total 1840 Balance 1840 - Medications Medications: Current Medications Acetaminophen (Tylenol 325mg Tab) 650 mg PO Q6H PRN PRN Reason: Fever >100.5 F Last Admin: 04/27/17 11:37 Dose: 650 mg Albuterol Sulfate (Albuterol 0.083% Inhal Michelle (2.5 Mg/3 Ml) Ud) 2.5 mg INH [id number] [facility] Last Admin: 04/28/17 07:54 Dose: 2.5 mg Benzonatate (Tessalon Perles) 100 mg PO Q8 PRN PRN Reason: Cough Last Admin: 04/27/17 22:11 Dose: 100 mg Enoxaparin Sodium (Lovenox) 40 mg SC DAILY [facility] PRN Reason: Protocol Last Admin: 04/28/17 10:02 Dose: 40 mg Famotidine (Pepcid) 40 mg PO HS [facility] Last Admin: 04/27/17 22:07 Dose: 40 mg Guaifenesin/Codeine Phosphate (Robitussin W/Codeine) 5 ml PO Q4H PRN PRN Reason: Cough and congestion Last Admin: 04/27/17 14:38 Dose: 5 ml Azithromycin (Zithromax 500mg In Ns) 500 mg in 250 mls @ 167 mls/hr IVPB DAILY [facility] PRN Reason: Protocol Last Admin: 04/28/17 10:02 Dose: 167 mls/hr Vancomycin HCl (Vancomycin 1gm) 1 gm in 250 mls @ 167 mls/hr IVPB Q12H [facility] PRN Reason: Protocol Last Admin: 04/28/17 10:02 Dose: 167 mls/hr Meropenem 1g/NS 100mL IVPB (Meropenem 1g/Ns 100ml Ivpb) 1 gm in 100 mls @ 100 mls/hr IVPB Q8 [facility] PRN Reason: Protocol Stop: 05/03/17 07:16 Last Admin: 04/28/17 05:30 Dose: 100 mls/hr Insulin Human Lispro (Humalog Low) 0 units SC ACHS [facility] PRN Reason: Protocol Last Admin: 04/28/17 08:43 Dose: Not Given Ondansetron HCl (Zofran Inj) 4 mg IVP Q4H PRN PRN Reason: Nausea/Vomiting Last Admin: 04/27/17 08:31 Dose: 4 mg Paroxetine HCl (Paxil) 10 mg PO DAILY [facility] Last Admin: 04/28/17 10:02 Dose: 10 mg Zolpidem Tartrate (Ambien) 5 mg PO HS [facility] PRN Reason: Protocol Last Admin: 04/27/17 22:08 Dose: 5 mg - Labs Labs: 04/28/17 05:20 04/28/17 05:20 PT 11.6 Seconds (9.9-11.8) 04/24/17 11:00 INR 1.07 (0.93-1.08) 04/24/17 11:00 APTT 29.2 Seconds (23.7-30.8) 04/24/17 11:00 - Constitutional Appears: Non-toxic, No Acute Distress - Head Exam Head Exam: NORMAL INSPECTION - Neck Exam Neck Exam: absent: Meningismus - Respiratory Exam Respiratory Exam: Decreased Breath Sounds. absent: Rales, Rhonchi, Wheezes - Cardiovascular Exam Cardiovascular Exam: RRR, +S1, +S2 - GI/Abdominal Exam GI & Abdominal Exam: Soft. absent: Tenderness Assessment and Plan - Assessment and Plan (Free Text) Plan: Infectious Diseases Attending Physician Attestation Patient seen and examined, discussed with district medical examiner. I agree with above findings, assessment and plan. In addition: Assessment Sepsis due to right lower lobe healthcare-associated pneumonia with possible gram positive cocci and/or gram negative bacilli, clinically improving DM obesity with BMI 37 Plan on Vancomycin and Zithromax and Merrem (day 4); cultures have been negative and patient has been afebrile for the past 2 days; will target 4-7 days of therapy and patient can complete therapy with Levaquin as discussed with Dr. Zeng
[2017-04-28] MEDS: Albuterol 0.083% Inhal Sol (2.5 mg/3 mL) UD INH SCH ×2 (07:54→11:50)
[2017-04-28] MEDS: Insulin Lispro (humaLOG) LOW Coverage SC SCH ×2 (08:43→12:26)
[2017-04-28] MEDS: Azithromycin 500MG/NS 250ml 500 MG/250 ML BAG IVPB SCH (10:02)
[2017-04-28] MEDS: Vancomycin 1gm in NS 250ml 1 GM/250 ML BAG IVPB SCH (10:02)
[2017-04-28] MEDS: Enoxaparin 40 mg Syringe SC SCH (10:02)
--- NOTE | 2017-04-28 12:27 | DS ---
HISTORY OF PRESENT ILLNESS: This is a 56-year-old female who come to the hospital with shortness of breath, was found to have a community-acquired pneumonia. The patient was septic and has improved. The patient has no complaints of any chest pain. No shortness of breath. No headaches. She has finished 4 days of antibiotics. The patient had an ultrasound showed fatty infiltration gallbladder polyps versus sludge. She currently feels well. She is breathing better. Her white count is back to normal. No headaches or dizziness. No nausea. She does have a cough at times that is productive but improved. PHYSICAL EXAMINATION: VITAL SIGNS: Temperature is 98.1, pulse of 67, blood pressure 125/60, respiration is 20, and O2 saturation 95%. ASSESSMENT: 1. Sepsis. 2. Community-acquired pneumonia. 3. Diabetes type II. 4. Anemia. 5. Dyslipidemia. 6. Depression. 7. Obesity with a body mass index 36. PLAN: The patient is currently on . She is on Lovenox for DVT prophylaxis. She has been on meropenem for antibiotics. The patient is on IV fluids. I will discontinue the patient's IV fluids at this point, and she is on vancomycin as well. She finished Zithromax. We will change to p.o. antibiotics and discharge the patient home. CONDITION: Stable. ACTIVITIES: Increase as tolerated. Ronald Ott MD
[2017-04-28 12:36] VITALS: BP 146/93; PULSE 90; RESP 21
[2017-05-01 00:33] LABS: SOURCE SERUM
== END 2017-04-28 14:42 | disposition home or self-care (01) | DRG 584 ==
LOC: ED 09:58 → ERH 13:41 → 5RSO 15:42 → OBSVTOIN 22:43 → CCU 04-25 00:33 → 2RNO 04-26 21:17
PROVIDERS: ADMIT Internal Medicine Nephrology; ATTEND Internal Medicine Nephrology
PROC: 3E0F7GC Introduction of Other Therapeutic Substance into Respiratory Tract, Via Natural or Artificial Opening (ICD-10-PCS; principal; 2017-04-26)
DX: A41.9 Sepsis, unspecified organism (principal); J18.9 Pneumonia, unspecified organism; E66.01 Morbid (severe) obesity due to excess calories; E11.9 Type 2 diabetes mellitus without complications; D64.9 Anemia, unspecified; F32.9 Major depressive disorder, single episode, unspecified; I25.10 Atherosclerotic heart disease of native coronary artery without angina pectoris; E78.5 Hyperlipidemia, unspecified; K57.30 Diverticulosis of large intestine without perforation or abscess without bleeding; F17.210 Nicotine dependence, cigarettes, uncomplicated; R51 Headache; G47.00 Insomnia, unspecified; F41.9 Anxiety disorder, unspecified; Y95 Nosocomial condition; G47.33 Obstructive sleep apnea (adult) (pediatric); Z79.84 Long term (current) use of oral hypoglycemic drugs; Z68.37 Body mass index [BMI] 37.0-37.9, adult; Z82.49 Family history of ischemic heart disease and other diseases of the circulatory system; Z83.3 Family history of diabetes mellitus